=== PATIENT | female | born 1935 | race Caucasian/White ===

== ENCOUNTER 2023-08-08 20:49 | Emergency (ER) | payer MEDICARE, OTHER, SELFPAY ==
[2023-08-08 20:53] VITALS: BP 151/103; BMI 29.1
[2023-08-08 22:45] VITALS: BP 201/76
--- NOTE | 2023-08-08 22:52 | EDRN ---
Pt went into the bathroom and when she exited, she tripped over the cord to her electric blanket that her cats had pulled from underneath the bed. Pt fell into wall and struck her head. No loc. Pt feels upper back tension, no neck pain. Pt has
'a little' headache. Pt had nausea initially but no longer. No visual disturbance or dizziness.
[2023-08-08] MEDS: TYLENOL 1000 MG PO (23:55)
[2023-08-08] MEDS: ADACEL 0.5 ML IM (23:56)
[2023-08-09] VITALS: BP 202/80
--- NOTE | 2023-08-09 00:56 | ED.GENMED ---
History of Present Illness
General
Chief Complaint: Fall
Source: patient and family
Exam Limitations: none
Time Seen by Provider: 08/08/23 22:18
Nursing documentation reviewed up to this point in time: agreed with
Travel History
Have you had any contact with someone who has COVID-19?: No
Do you have any symptoms of coronavirus? Fever > 100 degrees, chills, cough, shortness of breath, sore throat, loss of taste or smell, muscle aches, or headache?: No
History of Present Illness
History of Present Illness:
The patient is a pleasant 88-year-old female who reports that she tripped and fell over a cord and fell into a doorway. Patient arrives with bruising of her right face and periorbital area. She has a small laceration just to the right of her nasal
bridge. Patient denies vision changes and headache. She reports mild neck pain. There was no loss of consciousness. She denies back pain, chest pain abdominal pain. She is not on blood thinners. Her family heard her fall
Past History
Past History
ED Past Medical History: GERD, HTN, Hypercholesterolemia and Other (migraine)
ED Past Surgical History: Gynecological and Orthopedic
Social History
Tobacco: Non-smoker
Alcohol: Other
Drug: None
Personal:
Living: with family
Employment: Retired
Family History
Family History: Other
Review of Systems
Review of Systems
Allergies reviewed?: Yes
Other source history: family
All Other Systems: ROS reviewed and negative except as documented in HPI and ROS
Constitutional: Reports no symptoms
EENT: Reports other (Swelling along right nose area.)
Respiratory: Reports no symptoms
Cardiac: Reports no symptoms
ABD/GI: Reports no symptoms
: Reports no symptoms
Musculoskeletal: Reports muscle stiffness and neck pain
Skin: Reports other
Neurological: Reports no symptoms
Endocrine: Reports no symptoms
Hematologic/Lymphatic: Reports no symptoms
Psychiatric: Reports no symptoms
Phy Exam
Physical Exam
Physical Exam:
Physical Exam
General: no apparent distress, not acutely ill. Patient smiling, conversational
Neck: supple. Mild lower C-spine tenderness. Ecchymotic right periorbital area. Ecchymotic bridge of nose. Extraocular muscles intact. PERRL
Heart: s1/s2 regular rate and rhythm, no chest wall tenderness
Lungs: no acute respiratory distress. clear bilaterally. No thoracic or lumbar spine tenderness
Abdomen: Soft, nontender
Neuro: alert and oriented. no focal neurological deficits
Skin: 0.5 cm laceration just to the right of patient's nasal bridge
Psychiatric: well kept. interactive and cooperative
Extremities: Mild ecchymoses of medial right hand area. No bony tenderness of upper or lower extremities. Strong pulses of bilateral upper and lower extremities
Course
Orders/Labs/Results
Orders:
Orders
08/08/23 23:34
Acetaminophen [Tylenol] 1,000 mg PO NOW STA
Tetanus/Diphth/Acelpertussis [Adacel] 0.5 ml IM .ONCE ONE
08/09/23 00:00
CT Cervical Spine W/o Iv Contr Urgent
Reason For Exam: trauma, lower neck pain
CT Facial Bones W/o Iv Contras Urgent
Reason For Exam: trauma
CT Head W/o Iv Contrast Urgent
Reason For Exam: fall
Vital Signs
Initial and Last Documented VS:
Initial Vital Signs
Temp Pulse Resp BP Pulse Ox
97.4 F 67 16 151/103 98
08/08/23 20:53 08/08/23 20:53 08/08/23 20:53 08/08/23 20:53 08/08/23 20:53
Last Documented Vital Signs
Temp Pulse Resp BP Pulse Ox
97.4 F 74 14 118/68 96
08/08/23 20:53 08/09/23 01:48 08/09/23 01:48 08/09/23 01:48 08/09/23 01:48
Procedures
Laceration Closure
Right Upper Cheek:
Status of Wound: clean
Size of Wound in cm: 0.5
Description of Wound Edges: sharp and flap-well vascularized
Preparation: cleaned with saline
Type of Closure: Dermabond-skin glue
MDM/Problems Addressed
Differential Diagnosis Includes:
Nasal bone fracture, orbital wall fracture, intracranial hemorrhage
MDM/Problems Addressed:
Patient arrives with acute facial bruising and swelling, as well as acute neck pain after walking into a doorway area
Acute Exacerbation and/or Progression of Chronic Illness: HTN
*Pulse Oximetry
Patient hypoxic: no
*EKG
Interpreted by ED Provider?: NA
*Critical Care Note
Total Time (30-74mins, 75-104mins- exclusive of procedures): Not Applicable
ED Attending Note
-
Portions of this chart may have been created with voice recognition software.� Occasional wrong word or��sound alike� substitutions may have occurred due to the inherent limitations of voice recognition software.
Discharge Plan
Departure
Patient Disposition: Home (Routine Discharge)
Date of Disposition: 08/09/23
Time of Disposition: 01:41
Patient with high blood pressure during this ER visit?: Yes
Discharge Problem:
Facial contusion, Facial laceration
Instructions: Laceration Repair With Glue (DC), Head Injury in Adults (DC)
Prescriptions:
No Action
bisoprolol-hydrochlorothiazide [Ziac] 10-6.25 mg Tablet
0.5 tab PO DAILY
cyanocobalamin (vitamin B-12) 1,000 mcg Tablet
1,000 mcg PO DAILY
aspirin 81 mg Tablet,Delayed Release (Dr/Ec)
81 mg PO DAILY
sertraline 25 mg Tablet
25 mg PO DAILY
levothyroxine [Levoxyl] 112 mcg Tablet
112 mcg PO DAILY
cholecalciferol (vitamin D3) [Vitamin D3] 25 mcg (1,000 unit) Capsule
25 mcg PO DAILY
rosuvastatin 20 mg Tablet
20 mg PO DAILY
Referrals:
Alex Patel MD [Family Provider] -
Interventions
Interventions:
*Risk Screen - Suicide Last Done: 08/08/23 20:53
*General Assessment Last Done: 08/08/23 22:45
*Neglect/Abuse Screening Last Done: 08/08/23 20:53
ED- Fall Risk Assessment Last Done: 08/08/23 20:53
*ED COVID-19 Vaccine History Last Done: 08/08/23 20:53
*Nursing Disposition Last Done: 08/09/23 01:51
ED-Musculoskeletal Assessment Last Done: 08/08/23 22:45
ED- Neurological Assessment Last Done: 08/08/23 22:45
ED-Skin Assessment Last Done: 08/08/23 22:45
Discharge Date and Time
Discharge Date/Time: 08/09/23 01:51
[2023-08-09 01:48] VITALS: BP 118/68
== END 2023-08-09 01:51 | disposition home or self-care (01) ==
LOC: EMR 20:49
PROVIDERS: EMERGENCY PHYSICIAN Emergency Medicine; FAMILY PHYSICIAN Family Medicine
DX: S01.411A Laceration without foreign body of right cheek and temporomandibular area, initial encounter (principal); S00.83XA Contusion of other part of head, initial encounter; S00.11XA Contusion of right eyelid and periocular area, initial encounter; S00.33XA Contusion of nose, initial encounter; S60.221A Contusion of right hand, initial encounter; R11.0 Nausea; R51.9 Headache, unspecified; M54.2 Cervicalgia; W18.09XA Striking against other object with subsequent fall, initial encounter; I10 Essential (primary) hypertension; K21.9 Gastro-esophageal reflux disease without esophagitis; E78.00 Pure hypercholesterolemia, unspecified; Z79.82 Long term (current) use of aspirin; Z88.5 Allergy status to narcotic agent; Z88.8 Allergy status to other drugs, medicaments and biological substances
CPT/HCPCS: 99284; 12011; 90471; 70450; 70486; 72125; 90715

== ENCOUNTER 2024-06-29 13:50 | Inpatient (IN) | payer MEDICARE, OTHER, SELFPAY ==
[2024-06-28 13:03] VITALS: BP 161/99
--- NOTE | 2024-06-28 13:04 | ED.GENMED ---
ED Provider Triage
<Brianne Hou NP - Last Filed: 06/28/24 13:12>
-
Patient seen by provider in Triage?: Seen in Triage
89-year-old female here with her family here reports she has been seeing 'squiggly's' in her right visual field of both eyes, left greater than right. She has similar symptoms with previous migraines 'but not as bad and not as long.' Denies any
recent head injury or fall.
state 2 nights ago had episode of incontinence in her bed which is unusual for her and states the stool was very dark or black. Was in bed all day yesterday. She does feel 'a little dizzy,' she was nauseous for period time Thursday night but has had
no nausea since. There is been no vomiting. Patient denies CP, SOB, abdominal pain.
Ho she has been in bed since then, disoriented the past couple weeks worse the last couple days,
History of Present Illness
<Brianne Hou NP - Last Filed: 06/28/24 13:12>
General
Chief Complaint: Headache
Time Seen by Provider: 06/28/24 18:26
<Mikhail Cuevas PA-C - Last Filed: 06/28/24 21:11>
General
Source: patient and family
History of Present Illness
History of Present Illness:
89-year-old female with past medical history of hypertension, hyperlipidemia and diabetes (admittedly noncompliant with medications) presents to the emergency department for evaluation of a multitude of symptoms the main symptom being a bitemporal
headache accompanied with visual disturbance to the lateral aspect of the right eye and the medial aspect of the left eye. Patient reports that the headache and visual disturbance has been somewhat waxing and waning over the course the last 6
months, acutely worsening over the last month with symptoms even more acutely symptomatic over the last 24 to 48 hours. Patient states she also feels a little off balance because of the visual disturbance although notes she has not fallen. Thursday
night patient also noted that she had some GI upset including multiple episodes of diarrhea and a few episodes of vomiting all of which seemingly improved, son noted that patient's stool seemed a little bit darker in color.
Past History
<Brianne Hou IT ASSISTANT - Last Filed: 06/28/24 13:12>
Past History
ED Past Medical History: GERD, HTN, Hypercholesterolemia and Other (migraine)
ED Past Surgical History: Gynecological and Orthopedic
Social History
Tobacco: Non-smoker
Alcohol: Other
Drug: None
Personal:
Living: with family
Employment: Retired
Family History
Family History: Other
Review of Systems
<Mikhail Cuevas PA-C - Last Filed: 06/28/24 21:11>
Review of Systems
All Other Systems: ROS reviewed and negative except as documented in HPI and ROS
Phy Exam
<Mikhail Cuevas PA-C - Last Filed: 06/28/24 21:11>
Physical Exam
Physical Exam:
GENERAL: Alert , in no apparent distress
EYE: pupils equal and reactive, 4mm b/l, EOMI, there is right homonomous hemianopsia when evaluating visual [place]
NECK: Supple, no significant adenopathy.
ENT: o/p clr, mmm.
CARDIAC: Regular rate and rhythm .
LUNGS: Clear breath sounds bilaterally, no acute respiratory distress, no wheezes/rales/rhonchi
ABDOMEN: soft, non-tender, non-distended
NEUROLOGICAL: Alert and oriented, right sided dysmetria, no aphasia/dysarthria, no ataxia while ambulating
SKIN: Warm and dry, skin intact.
MUSCULOSKELETAL: No edema, well perfused.
PSYCH: Normal and appropriate interaction.
Scores
<Mikhail Cuevas PA-C - Last Filed: 06/28/24 21:11>
NIH Stroke Score
Level of Consciousness: 0 - Alert
LOC Questions: 0-Answers both correctly
LOC Commands: 0-Performs both correctly
Best Horizontal Gaze: 0-Normal
Visual [place]: 2=Full hemianopia
Facial Palsy: 0=Normal, symmetrical
Motor - Right Arm: 0=No drift 10 seconds
Motor - Left Arm: 0=No drift 10 seconds
Motor - Right Le-No drift 5 seconds
Motor - Left Le-No drift 5 seconds
Limb Ataxia: 0-Absent
Sensation: 0-Normal
Best Language: 0-No aphasia
Dysarthria: 0-Normal
Extinction and Inattention: 0-No abnormality
Total Score:: 2
Thrombolytic Contraindication
Inclusion and Exclusion criteria reviewed: Yes
Reasons for NON-Tx with Thrombolytics ABSOLUTE Exclusions: Greater than 4.5 hrs from onset of sxs
Course
<Brianne Hou, IT ASSISTANT - Last Filed: 06/28/24 13:12>
Orders/Labs/Results
Orders:
Orders
06/28/24 13:12
CT Head W/o Iv Contrast Urgent
Comment:
Reason For Exam: visual disturbance, confusion
Urinalysis Reflex To Culture Urgent
Date Specimen was Collected: 06/28/24
Time Specimen was Collected: 19:09
06/28/24 13:16
C-Reactive Protein Urgent
Comment: ADD ON
Complete Blood Count/With Diff Urgent
Comprehensive Metabolic Panel Urgent
Erythrocyte Sed Rate Urgent
Comment: ADD ON
06/28/24 18:28
CR Chest - 2 Views Urgent
Comment:
Reason For Exam: sepsis eval
06/28/24 18:42
COVID-19 Antigen Urgent
Source: Nasal Swab
Influenza A+B Rapid Molecular Urgent
THANIA Source: Nasal Swab
Specimen Description:
06/28/24 18:43
Add On- LAB Urgent
Tests Added?: ESR/CRP
06/28/24 18:47
CT Head & Neck Angio W/wo IV Urgent
Comment:
Reason For Exam: right homonomous hemianopsia
06/28/24 18:56
Electrocardiogram (*1) Urgent
Reason for Study: TIA/Stroke
EKG- Treatment ONCE
06/28/24 19:15
Lactic Acid Q4H
Comment: CANCEL 2nd LACTIC ACID IF 1st LACTIC ACID IS LESS THAN 2
Blood Culture Q30M
THANIA Source: Blood/Venous
Specimen Description:
Blood Culture Q30M
THANIA Source: Blood/Venous
Specimen Description:
06/28/24 19:40
MR Brain Without Contrast Routine
Comment:
Reason For Exam: encephalopathy
OK for patient to be off Cardiac Monitoring for MRI: No
Recent pill cam endoscopy?: No
06/28/24 20:45
Urine Drug Abuse Screen Routine
06/28/24 20:49
Admit/Transfer Patient As Directed
Co-Sign Provider:
Level of Care: Observation services
Assign to:: Telemetry
Physician / Group: Filippo Bear
Diagnosis: homonomous hemionopsia
Reason for Telemetry: CVA/TIA
Date to Stop Telemetry: 07/01/24
Time to Stop Telemetry: 11:00
PRN Pain Medication Management As Directed
May give lesser potent ordered pain med per pt: Yes
preference::
Protocol:: Medication orders for pain may be administered in a
manner that supports deferring to patient preference
when the pt is:
- Requesting an ordered lesser potent pain medication.
Least to most potent pain medications are defined
as: acetaminophen < NSAID < tramadol < opioids
(morphine, oxycodone, hydromorphone).
- Requesting a lesser dose of the same medication IF
ORDERED.
- Requesting a less intrusive route of administration
if both routes are prescribed by the provider (PO <
IV).
06/28/24 20:50
Code Status As Directed
Resuscitation Status: Full Code
06/28/24 22:30
Lactic Acid Q4H
Comment: CANCEL 2nd LACTIC ACID IF 1st LACTIC ACID IS LESS THAN 2
07/01/24 11:00
DC Protocol for Telemetry ONCE
Abnormal Lab Results
06/28/24
13:16
WBC 19.1 H 10^3/uL
(4.8-10.8)
MPV 11.0 H fL
(7.4-10.4)
Abs Immat Gran (auto) 0.1 H 10^3/uL
(0-0.05)
Absolute Neuts (auto) 15.5 H 10^3/uL
(1.4-6.5)
Absolute Monos (auto) 1.0 H 10^3/uL
(0.1-0.6)
Neutrophils % 80.9 H %
(42.2-75.2)
Lymphocytes % 12.7 L %
(20.5-51.1)
Chloride 96 L mmol/L
(98-107)
BUN 18 H mg/dl
(7-17)
Creatinine 1.2 H mg/dL
(0.6-1.0)
Glucose 169 H mg/dl
(70-99)
C-Reactive Protein 69.80 H mg/L
(0.0-10.00)
06/28/24 13:16
06/28/24 13:16
Vital Signs
Initial and Last Documented VS:
Initial Vital Signs
Temp Pulse Resp BP Pulse Ox
97.8 F 101 17 161/99 98
06/28/24 13:03 06/28/24 13:03 06/28/24 13:03 06/28/24 13:03 06/28/24 13:03
Last Documented Vital Signs
Temp Pulse Resp BP Pulse Ox
98.2 F 82 18 186/86 98
06/28/24 15:34 06/28/24 19:29 06/28/24 19:29 06/28/24 19:29 06/28/24 19:29
<Mikhail Cuevas PA-C - Last Filed: 06/28/24 21:11>
Orders/Labs/Results
Orders:
Orders
06/28/24 13:12
CT Head W/o Iv Contrast Urgent
Comment:
Reason For Exam: visual disturbance, confusion
Urinalysis Reflex To Culture Urgent
Date Specimen was Collected: 06/28/24
Time Specimen was Collected: 19:09
06/28/24 13:16
C-Reactive Protein Urgent
Comment: ADD ON
Complete Blood Count/With Diff Urgent
Comprehensive Metabolic Panel Urgent
Erythrocyte Sed Rate Urgent
Comment: ADD ON
06/28/24 18:28
CR Chest - 2 Views Urgent
Comment:
Reason For Exam: sepsis eval
06/28/24 18:42
COVID-19 Antigen Urgent
Source: Nasal Swab
Influenza A+B Rapid Molecular Urgent
THANIA Source: Nasal Swab
Specimen Description:
06/28/24 18:43
Add On- LAB Urgent
Tests Added?: ESR/CRP
06/28/24 18:47
CT Head & Neck Angio W/wo IV Urgent
Comment:
Reason For Exam: right homonomous hemianopsia
06/28/24 18:56
Electrocardiogram (*1) Urgent
Reason for Study: TIA/Stroke
EKG- Treatment ONCE
06/28/24 19:15
Lactic Acid Q4H
Comment: CANCEL 2nd LACTIC ACID IF 1st LACTIC ACID IS LESS THAN 2
Blood Culture Q30M
THANIA Source: Blood/Venous
Specimen Description:
Blood Culture Q30M
THANIA Source: Blood/Venous
Specimen Description:
06/28/24 19:40
MR Brain Without Contrast Routine
Comment:
Reason For Exam: encephalopathy
OK for patient to be off Cardiac Monitoring for MRI: No
Recent pill cam endoscopy?: No
06/28/24 20:45
Urine Drug Abuse Screen Routine
06/28/24 20:49
Admit/Transfer Patient As Directed
Co-Sign Provider:
Level of Care: Observation services
Assign to:: Telemetry
Physician / Group: Filippo Bear
Diagnosis: homonomous hemionopsia
Reason for Telemetry: CVA/TIA
Date to Stop Telemetry: 07/01/24
Time to Stop Telemetry: 11:00
PRN Pain Medication Management As Directed
May give lesser potent ordered pain med per pt: Yes
preference::
Protocol:: Medication orders for pain may be administered in a
manner that supports deferring to patient preference
when the pt is:
- Requesting an ordered lesser potent pain medication.
Least to most potent pain medications are defined
as: acetaminophen < NSAID < tramadol < opioids
(morphine, oxycodone, hydromorphone).
- Requesting a lesser dose of the same medication IF
ORDERED.
- Requesting a less intrusive route of administration
if both routes are prescribed by the provider (PO <
IV).
06/28/24 20:50
Code Status As Directed
Resuscitation Status: Full Code
06/28/24 22:30
Lactic Acid Q4H
Comment: CANCEL 2nd LACTIC ACID IF 1st LACTIC ACID IS LESS THAN 2
07/01/24 11:00
DC Protocol for Telemetry ONCE
Abnormal Lab Results
06/28/24
13:16
WBC 19.1 H 10^3/uL
(4.8-10.8)
MPV 11.0 H fL
(7.4-10.4)
Abs Immat Gran (auto) 0.1 H 10^3/uL
(0-0.05)
Absolute Neuts (auto) 15.5 H 10^3/uL
(1.4-6.5)
Absolute Monos (auto) 1.0 H 10^3/uL
(0.1-0.6)
Neutrophils % 80.9 H %
(42.2-75.2)
Lymphocytes % 12.7 L %
(20.5-51.1)
Chloride 96 L mmol/L
(98-107)
BUN 18 H mg/dl
(7-17)
Creatinine 1.2 H mg/dL
(0.6-1.0)
Glucose 169 H mg/dl
(70-99)
C-Reactive Protein 69.80 H mg/L
(0.0-10.00)
06/28/24 13:16
06/28/24 13:16
Vital Signs
Initial and Last Documented VS:
Initial Vital Signs
Temp Pulse Resp BP Pulse Ox
97.8 F 101 17 161/99 98
06/28/24 13:03 06/28/24 13:03 06/28/24 13:03 06/28/24 13:03 06/28/24 13:03
Last Documented Vital Signs
Temp Pulse Resp BP Pulse Ox
98.2 F 82 18 186/86 98
06/28/24 15:34 06/28/24 19:29 06/28/24 19:29 06/28/24 19:29 06/28/24 19:29
<Mikhail Cuevas PA-C - Last Filed: 06/28/24 21:11>
MDM/Problems Addressed
Differential Diagnosis Includes:
CVA, atypical migraine, malignancy/mass, carotid stenosis, giant cell arteritis considered given age and sex however given the bilateral nature of the symptoms I am less concerned for this as a diagnosis. Less concern for seizure, electrolyte
abnormality, viral syndrome
MDM/Problems Addressed:
89-year-old female presenting to the emergency department for evaluation of a multitude of symptoms, most pressing is right-sided homonymous hemianopsia with an unclear onset of symptoms, patient noting the symptoms have been waxing and waning for
approximately 6 months, acutely worse over the last month but seemingly more of a headache for the last 48 hours or so. Within these 48 hours patient also noted some GI upset with the symptoms now fully resolved. She arrived to the ER
hemodynamically stable although mild tachycardic. Labs were initiated on arrival which do show a significantly persistent 19,000, mild chronic kidney disease and a negative plain CT of the head. Given these lab findings as well as patient's
physical exam findings I do feel she warrants admission for further evaluation. Additional labs for infectious etiology ordered. Will discuss with neurology. Plan to admit to hospitalist service.
Chronic conditions affecting care: DM and HTN
<Mikhail Cuevas PA-C - Last Filed: 06/28/24 21:11>
*Radiology
Radiology exam reviewed: radiology read reviewed
*Pulse Oximetry
Patient hypoxic: no
*Critical Care Note
Total Time (30-74mins, 75-104mins- exclusive of procedures): Not Applicable
Data Reviewed
Review of Other/Old Records Reveals: Labs and Records
<Mikhail Cuevas PA-C - Last Filed: 06/28/24 21:11>
Patient Management
Discussion with other providers: Hospitalist and Clerk Typist
Escalation/DeEscalation of care consider admission/obs:
Case discussed with neurology who is requesting a CTA of the head and neck be ordered. Hospitalist team accepts for continued evaluation and treatment.
ED Attending Note
<Brianne Hou NP - Last Filed: 06/28/24 13:12>
-
Portions of this chart may have been created with voice recognition software.� Occasional wrong word or��sound alike� substitutions may have occurred due to the inherent limitations of voice recognition software.
Discharge Plan
Departure
Patient Disposition: Admit
Date of Disposition: 06/28/24
Time of Disposition: 19:02
Presentation/result/management discussed w/ accepting MD/DO: Hospitalist
Discharge Problem:
Hemianopia, homonymous, right, Leukocytosis
Interventions
Interventions:
*Risk Screen - Suicide Last Done: 06/28/24 13:06
*General Assessment Last Done: 06/28/24 13:06
*Neglect/Abuse Screening Last Done: 06/28/24 13:06
*ED COVID-19 Vaccine History Last Done: 06/28/24 13:06
ED- Neurological Assessment Last Done: 06/28/24 19:40
[2024-06-28 13:44] LABS: % Basophils 0.5 % (0-2); % Eosinophils 0.3 % (0-6); % Immature Granulocytes 0.5 % (0-0.5); % Lymphocytes 12.7 % (20.5-51.1); % Monocytes 5.1 % (1.7-9.3); % Neutrophils 80.9 % (42.2-75.2); Absolute Basophils 0.1 10^3/uL (0-0.2); Absolute Eosinophils 0.1 10^3/uL (0-0.7); Absolute Immature Granulocytes 0.1 10^3/uL (0-0.05); Absolute Lymphocytes 2.4 10^3/uL (1.2-3.4); Absolute Neutrophils 15.5 10^3/uL (1.4-6.5); Hematocrit 43.5 % (37.0-47.0); Hemoglobin 14.9 g/dL (12.0-16.0); Mean Corp Hgb Conc. 34.3 g/dL (33.0-37.0); Mean Corpuscular Hgb 29.9 pg (27.0-31.0); Mean Corpuscular Volume 87.2 fL (81.0-99.0); Nucleated Red Blood Cells % 0 %; Platelet Count 233 10^3/uL (130-400); Red Blood Cell Count 4.99 10^6/uL (4.20-5.40); Red Cell Dist. Width 13.8 % (11.5-14.5); White Blood Cell Count 19.1 10^3/uL (4.8-10.8)
[2024-06-28 13:56] LABS: ALT (SGPT) 15 U/L (0-35); AST (SGOT) 21 U/L (14-36); Albumin 4.3 g/dl (3.5-5.0); Alkaline Phosphatase 54 U/L (38-126); Blood Urea Nitrogen 18 mg/dl (7-17); Calcium 9.6 mg/dl (8.4-10.2); Carbon Dioxide 28 mmol/L (22-30); Chloride 96 mmol/L (98-107); Glucose 169 mg/dl (70-99); Potassium 3.9 mmol/L (3.5-5.1); Sodium 135 mmol/L (135-145); Total Bilirubin 0.8 mg/dl (0.2-1.3); Total Protein 6.8 g/dl (6.3-8.2); eGFR 43.27
[2024-06-28 15:34] VITALS: BP 157/83
[2024-06-28 18:15] VITALS: BP 173/86
--- NOTE | 2024-06-28 18:56 | CON.NEURO ---
Consultation
Order
Date of Consultation: 06/28/24
Requesting Provider: Mikhail Cuevas PA-C
Reason for Consult: Imbalance, right hemianopsia
Neurology Consultation Note.
HPI: This is an 89-year-old woman who presented to [facility] on 06/28/2024 with headache.
Ms. Lima is unable to provide history. She admits to change in balance and vision but unable to elaborate on the bowel.
ER VS: 161/99-173/86, 101, afebrile
EKG: Pending
PDMP:none
Labs: Glucose�169, creatinine�1.2, normal sodium
CT head wo contrast-no acute abnormalities.
PMH: HTN, DLP, hypothyroidism, Vitamin D deficiency, GERD, LAURITA, migraine QUINTERO
PSH:left lumpectomy, bilateral tubal ligation, hernia repair umbilical,
SH: , lives with her son.
FH: Unknown
All: Aspirin, oxycodone, penicillin, Propoxyphene
ROS: positive for several months of progressive encephalopathy, right leg weakness
General: Well developed. In no acute distress.
Cardio: Regular rate and rhythm without murmur. Extremities are without cyanosis or edema.
Neuro:
Mental Status: Alert, oriented to name, year, month. Did not know the date. Nonfluent expressive aphasia. Follows simple requests intermittently.
Cranial Nerves: Pupils are equally round and reactive to light. EOMs full. Inconsistent visual field exam to confrontation. Blinks to threat bilaterally. No ptosis. No nystagmus. V1-V3 intact to light touch and pinprick bilaterally,
symmetric. Face symmetric. Normal hearing AU. The palate elevated well. SCMs and traps 5/5. Tongue midline. No dysarthria.
Motor: No pronator drift. Right proximal leg weakness-
Reflexes: Limited exam due to cooperation
Sensory: Limited exam due to dysphagia
Coordination: No dysmetria or tremor.
Gait: deferred
Assessment and Plan:
I. Multifactorial encephalopathy (vascular, metabolic)
II. HTN
III. Hypothyroidism,
-Aspiration precautions.
-Please check TFTs, B12, UA, urine tox
-Brain MRI without laurita to soon as possible
-Routine EEG if no acute abnormalities
-Will obtain collateral history from patient's family
-I have called patient's daughter and son who were not available
-DVT prophylaxis.
I personally reviewed all radiology and labs along with past medical records pertinent to current medical problems. Total time spent in patient care is 60 minutes.
Thank you for allowing us to participate in the care of this patient. We will continue to follow. Please do not hesitate to contact us with any questions or concerns.
Subjective/Objective
Subjective Data
Date of Service: June 28, 2024
Objective Data
Vital Signs
Temp Pulse Resp BP Pulse Ox
36.8 C 80 16 173/86 98
06/28/24 15:34 06/28/24 18:15 06/28/24 18:15 06/28/24 18:15 06/28/24 18:15
Lab Results
06/28/24 13:16
06/28/24 13:16
Sodium 135 mmol/L (135-145) 06/28/24 13:16
Potassium 3.9 mmol/L (3.5-5.1) 06/28/24 13:16
BUN 18 mg/dl (7-17) H 06/28/24 13:16
Glucose 169 mg/dl (70-99) H 06/28/24 13:16
Calcium 9.6 mg/dl (8.4-10.2) 06/28/24 13:16
Patient Allergies
oxycodone Allergy (Verified 06/28/24 13:05)
hallucinations, disorientation, nausea
propoxyphene napsylate [From DarAirtimet-N 100] Allergy (Verified 06/28/24 13:05)
Nausea
Medications
-
Home Medications
�Medication �Instructions �Recorded
aspirin 81 mg tablet,delayed 81 mg PO DAILY 08/08/23
release
bisoprolol 10 0.5 tab PO DAILY 08/08/23
mg-hydrochlorothiazide 6.25 mg
tablet
cholecalciferol (vitamin D3) 25 25 mcg PO DAILY 08/08/23
mcg (1,000 unit) capsule (Vitamin
D3)
cyanocobalamin (vitamin B-12) 1,000 mcg PO DAILY 08/08/23
1,000 mcg tablet
levothyroxine 112 mcg tablet 112 mcg PO DAILY 08/08/23
(Levoxyl)
rosuvastatin 20 mg tablet 20 mg PO DAILY 08/08/23
sertraline 25 mg tablet 25 mg PO DAILY 08/08/23
Vital Signs and Labs
-
Vital Signs and Labs:
Vital Signs
Temp Pulse Resp BP Pulse Ox
36.8 C 82 18 186/86 98
06/28/24 15:34 06/28/24 19:29 06/28/24 19:29 06/28/24 19:29 06/28/24 19:29
Lab Results
06/28/24 13:16
06/28/24 13:16
Sodium 135 mmol/L (135-145) 06/28/24 13:16
Potassium 3.9 mmol/L (3.5-5.1) 06/28/24 13:16
BUN 18 mg/dl (7-17) H 06/28/24 13:16
Glucose 169 mg/dl (70-99) H 06/28/24 13:16
Calcium 9.6 mg/dl (8.4-10.2) 06/28/24 13:16
Home Medications
-
Home Medications
aspirin 81 mg tablet,delayed release 81 mg PO DAILY 08/08/23
bisoprolol 10 mg-hydrochlorothiazide 6.25 mg tablet 0.5 tab PO DAILY 08/08/23
cholecalciferol (vitamin D3) 25 mcg (1,000 unit) capsule (Vitamin D3) 25 mcg PO DAILY 08/08/23
cyanocobalamin (vitamin B-12) 1,000 mcg tablet 1,000 mcg PO DAILY 08/08/23
levothyroxine 112 mcg tablet (Levoxyl) 112 mcg PO DAILY 08/08/23
rosuvastatin 20 mg tablet 20 mg PO DAILY 08/08/23
sertraline 25 mg tablet 25 mg PO DAILY 08/08/23
[2024-06-28 19:03] LABS: COVID-19 Antigen Negative (Negative)
[2024-06-28 19:29] VITALS: BP 186/86
[2024-06-28 19:43] LABS: Erythrocyte Sed Rate 7 mm/hour (0-20)
[2024-06-28 19:47] LABS: Lactic Acid 1.2 mmol/L (0.7-2.0)
--- NOTE | 2024-06-28 19:47 | HPS.HSE ---
Addendum entered and electronically signed by Filippo Bear DO 06/28/24 21:15:
Patient seen and examined independently. Agree with findings and plan as set forth by NAVEEN Worrell
Patient is an 89y F with PMH significant for HTN, DM-II and hypothyroidism who presented to ED complaining of headache and vision changes. Patient describes wavy or colored lines in her field of vision. She also complains of loss of vision to
the right. She denies any focal numbness, weakness or tingling. She denies any headache at the time of my visit. Patient reports episopde of bowel incontinence a few days prior to this admission. Some details of her history are unclear and seem
to change with each telling.
Ass:
Vision Change / Headache
Benign Hypertension
DM-II
History of Breast Cancer s/p Mastectomy
GERD
Hypothyroidism
Leukocytosis
Plan:
Observe overnight for further evaluation and treatment.
Appreciate Neurology evaluation / recommendations.
MRI in the AM.
Continue ASA daily for now.
Follow for any changes in neuro exam.
Adjust med regimen as needed for BP control.
Follow glucose and update A1C.
Original Note:
Family Physician
-
Family Physician: Alex Patel
Chief Complaint
-
headache
History of Present Illness
Patient is a 89-year-old female with past medical history significant for hypothyroidism, hypertension, hyperlipidemia, GERD, arthritis, DM II, and hx left breast cancer who presented to [facility] for evaluation of headache and change in eye
sight. Son assisted in HPI. It is reported that patient has been seeing 'squiggly' in her right visual field that is yellow/orange in color, in bilateral eyes, left eye being worse than right. Patient reports similar experience with migraines in the
past, but states never have lasted this long before. Patient also reports episode of bowel incontinence in bed 2 days ago (which is not typical for her) and claims stool was darker than normal. Patient claims she has had these symptoms for months
with them getting progressively worse over the past month and significantly increased in last 48 hours. Patient had episode of abdominal pain with diarrhea for one day on Thursday. Denies any fever, chills, cough, shortness of breath, chest pain,
nausea, vomiting, constipation or urinary symptoms. Patient reports that she has not seen primary provider in sometime and that she has not taken her medication as prescribed as a result.
Medical History
Past Medical History
Past Medical History: Reports Other
Additional Past Medical History:
hypothyroidism
hypertension
hyperlipidemia
GERD
arthritis
DM II
hx left breast cancer
Past Surgical History: Reports Other
Additional Past Surgical History:
bilateral knee replacement
bilateral tubal ligation
umbilical hernia repair
Social History
Tobacco: Non-smoker
Alcohol: Occasional
Drug: None
Personal:
Living: With Family
Employment: Retired
Family History
Family History: Not pertinent
Allergies / Home Medications
Allergies reflects when Allergies were last updated in [facility].
Home Medications with original date entered in [facility]
Allergy/Medication List:
Allergies
Allergy/AdvReac Type Severity Reaction Status Date / Time
oxycodone Allergy hallucinations, Verified 06/28/24 13:05
disorientation,
nausea
propoxyphene napsylate Allergy Nausea Verified 06/28/24 13:05
[From Darvocet-N 100]
Home Medications
bisoprolol 10 mg-hydrochlorothiazide 6.25 mg tablet 1 tab PO DAILY 08/08/23
Review of Systems
-
History Source: Patient and Family
Constitutional: Reports No Symptoms
EENT: Reports Other (visual disturbance to right visual field in bilateral eyes )
Respiratory: Reports No Symptoms
Cardiac: Reports No Symptoms
Abdomen/GI: Reports Abdominal Pain and Diarrhea
: Reports No Symptoms
Musculoskeletal: Reports No Symptoms
Skin: Reports No Symptoms
Neurological: Reports No Symptoms
Endocrine: Reports No Symptoms
Hematologic/Lymphatic: Reports No Symptoms
Psych: Reports No Symptoms
Physical Exam
Vital Signs
Vital Signs
Temp Pulse Resp BP Pulse Ox
98.2 F 82 18 186/86 98
06/28/24 15:34 06/28/24 19:29 06/28/24 19:29 06/28/24 19:29 06/28/24 19:29
Physical Exam
General: Well Developed, Well Nourished, No Apparent Distress, Comfortable, Conversant and Obese
HEENT: NormoCephalic, Moist mucous membranes, Atraumatic, PERRLA, [place] Conjunctivae, Nose Appears Normal and Ears Appear Normal
Respiratory: Clear and Non Labored Respirations
Cardiac: S1/S2 and Regular Rhythm; No Murmur, Rub or Gallop
Breast: Deferred by me
GI: Soft, Non Tender and Normal Bowel Sounds; No Organomegaly
Rectal: Deferred by Provider
Genito-urinary: Deferred by me
Musculoskeletal: No Clubbing, No Cyanosis and No Edema
Skin: Warm and IV/Catheter Site; No Rash
Neuro: Awake, Alert and Nonfocal/grossly intact
Psych: Calm and Confused
Laboratory Results
-
06/28/24 13:16
06/28/24 13:16
Laboratory Results
Total Bilirubin 0.8 mg/dl (0.2-1.3) 06/28/24 13:16
AST 21 U/L (14-36) 06/28/24 13:16
ALT 15 U/L (0-35) 06/28/24 13:16
Alkaline Phosphatase 54 U/L (38-126) 06/28/24 13:16
Data Reviewed
-
CT Scan: Report Reviewed by me (Head CT: )
Medical Tests (Nuc Med, Echo, EKG etc): Report Reviewed by me (EKG: NORMAL SINUS RHYTHM)
Lab Data: Labs Reviewed by me (WBC 19.1, BUN 18, Creat 1.2, CRP 69.80, )
Impression/Plan
-
IMPRESSION/PLAN:
#homonomous hemianopsia, expressive aphasia, headache
Head CT: No acute intracranial abnormality noted.
Head/Neck CTA: pending
- admit to telemetry
- consult neurology
- check TFT, B12, UA and Urine tox
- brain MRI
#hypothyroidism
- check TFT
#hypertension
- monitor
- continue bisoprolol-hydrochlorothiazide
#DM II
- Accucheck AC & HS
- SSI
- check A1C
#hyperlipidemia
#GERD
#arthritis
#hx left breast cancer
Code status: Full code
DVT prophylaxis: SCDs
--- NOTE | 2024-06-28 21:30 | PTCARENOTE ---
Pt received from ED at 2114. Pt pleasant, AAOx3, VSS, and rolled into room. Pt exhibiting moist cough, on 4L NC, O2 95%, and does not complain of any pain at this time. Pt receptive to room and call li. Pt bed in lowest position and call li
within reach. Pt educated on importance of call li usage, pt relays understanding and cooperation. Will continue with current plan of care.
[2024-06-28 21:33] VITALS: BP 169/82
--- NOTE | 2024-06-28 21:45 | PTCARENOTE ---
Pt received from ED at 2130. Pt AAOX3, VSS, and able to ambulate into room without assistance. Pt absent of pain at this time. NIH score of 3, refer to NIH stroke scale. Pt receptive to room and call li. Pt bed in lowest position and call li
within reach. Pt educated on importance of call li usage, pt relays understanding and cooperation. Will continue with current plan of care.
[2024-06-28 22:43] VITALS: BP 184/90; BMI 29.8
[2024-06-29] VITALS (7 sets, daily range): BP systolic 145–203; BP diastolic 8–95; PULSE 81; O2SAT 96
[2024-06-29] MEDS: APRESOLINE 5 MG IV ×2 (03:58→22:28)
[2024-06-29 06:31] LABS: Amphetamines Negative (Negative); Barbiturates Negative (Negative); Benzodiazepines Negative (Negative); Buprenorphine Negative (Negative); Cocaine Negative (Negative); Marijuana Negative (Negative); Methadone Negative (Negative); Methamphetamines Negative (Negative); Opiates Negative (Negative); Phencyclidine Negative (Negative); Tricyclic Antidepressants Negative (Negative)
[2024-06-29 06:39] LABS: Hematocrit 38.9 % (37.0-47.0); Hemoglobin 13.4 g/dL (12.0-16.0); Mean Corp Hgb Conc. 34.4 g/dL (33.0-37.0); Mean Corpuscular Hgb 29.6 pg (27.0-31.0); Mean Corpuscular Volume 85.9 fL (81.0-99.0); Mean Platelet Volume 10.7 fL (7.4-10.4); Platelet Count 211 10^3/uL (130-400); Red Blood Cell Count 4.53 10^6/uL (4.20-5.40); Red Cell Dist. Width 13.5 % (11.5-14.5); White Blood Cell Count 14.2 10^3/uL (4.8-10.8)
[2024-06-29 06:53] LABS: PT 14.5 Sec (11.4-14.6)
[2024-06-29 06:54] LABS: APTT 33.3 Sec (23.4-35.0)
[2024-06-29 06:58] LABS: ALT (SGPT) 14 U/L (0-35); AST (SGOT) 20 U/L (14-36); Albumin 3.6 g/dl (3.5-5.0); Alkaline Phosphatase 55 U/L (38-126); Blood Urea Nitrogen 16 mg/dl (7-17); Calcium 9.4 mg/dl (8.4-10.2); Carbon Dioxide 25 mmol/L (22-30); Chloride 100 mmol/L (98-107); Estimated Creatinine Clearance 45 ml/min; Glucose 112 mg/dl (70-99); HDL Cholesterol 52 mg/dl; LDL Cholesterol, Calculated 115 mg/dl; Potassium 3.5 mmol/L (3.5-5.1); Sodium 135 mmol/L (135-145); Total Bilirubin 0.6 mg/dl (0.2-1.3); Total Cholesterol 189 mg/dl (50-199); Total Protein 6.1 g/dl (6.3-8.2); Triglyceride 113 mg/dl (10-149); Very Low Density Lipoprotein 22 mg/dl (0-30); eGFR > 60.00
[2024-06-29 07:02] LABS: Troponin I 0.018 ng/ml
[2024-06-29 07:28] LABS: TSH Reflex To Free T4 7.75 uIU/ml (0.47-4.68)
[2024-06-29 07:47] LABS: Vitamin B12 609 pg/ml (239-931)
[2024-06-29 07:56] LABS: Free T4 1.09 ng/dl (0.78-2.19)
[2024-06-29] MEDS: ZEBETA 10 MG PO (08:07)
[2024-06-29] MEDS: ORETIC 6.25 MG PO (08:07)
--- NOTE | 2024-06-29 08:30 | W.PN.HOSP.TC ---
Addendum entered and electronically signed by Taisha Elizondo MD 06/29/24 16:46:
I saw and evaluated the patient independently. I reviewed the resident�s note and agree with findings and plan as documented by Dr. Castillo.
GENERAL: well developed, well nourished, female in no apparent distress
HEENT: NC/AT
HEART: regular rate and rhythm, +S1, +S2
LUNGS : clear to auscultation bilaterally
ABDOM: soft, nontender, nondistended, + bowel sounds
EXT: no cyanosis, clubbing, or edema
NEUROLOGIC: expressive aphasia, 'blind spot as could not see her daughter who was to her right', strength 5/5 all extremities
Visual defect/aphasia--Right homonymous hemianopia, expressive aphasia--MRI consistent with acute to subacute stroke--head CT in ED neg and head and neck CTA neg--apprec neuro--agree with starting asa/plavix-- ECHO essentially WNL, EF
60-65%--therapy recommending acute rehab, will consult PM&R--await EEG--B12 WNL, urine tox screen neg--strong family history with daughter, sons with CVAs--consider hypercoagulable workup as outpt
Hypothyroidism--TFT�elevated TSH at 7.75--Patient was prescribed 112 mcg levothyroxine, but she stopped taking it--restart
Leukocytosis--unclear cause--stress reaction?--no signs of infection
History of melena?--son relates black diarrhea that appeared to have blood in it--HGB stable
Essential Hypertension--Continue bisoprolol/hydrochlorothiazide
DM II--Accucheck AC & HS--SSI-- HGB A1C 5.9
DVT proph
code status--FULL
pt should NOT drive--told her and her family
Original Note:
Today's Communication/Plan
-
Start aspirin, Plavix
Echo
Assessment / Plan
Assessment / Plan
89-year-old female with past medical history of hypothyroidism, essential hypertension, migraine, breast cancer presented to the ER reporting headache, speech issues and vision changes. She is not able to see on the right side of her visual field.
This has been ongoing for a month but has worsened in the past week. Patient's son reported that he noticed some speech defect. Also patient had bowel incontinence 2 days ago and son reported that she passed dark stools. There was a history of
TIA 7 years ago, but she was not started on any medications. Only medication she takes at home is bisoprolol/hydrochlorothiazide.
Impression/plan
Visual defect/aphasia
Right homonymous hemianopia, expressive aphasia
CT head�no evidence of acute intracranial abnormality
CT angiogram head/neck� There is no evidence for significant narrowing of the carotid bulbs or proximal internal carotid arteries bilaterally.Dominant right vertebral artery with small caliber left vertebral artery.
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
Started on aspirin 81 mg, clopidogrel 75 mg.
Ordered echo
Neurology following
B12�609, urine toxicology negative
EEG pending
PT/OT
Hypothyroidism
TFT�elevated TSH at 7.75
Patient was prescribed 112 mcg levothyroxine, but she stopped taking it.
Resume
History of melena
Hemoglobin stable
Monitor
Hypertension
Continue bisoprolol/hydrochlorothiazide
DM II
Accucheck AC & HS
SSI
A1C 5.9
Anticipated Discharge: 24 - 48 hours
Subjective/Interval History
-
Date of Service: June 29, 2024
Patient has expressive aphasia. Reports her right side of the vision is not normal.
Objective Data
-
Labs:
Laboratory Results
06/29/24
06:26
WBC 14.2 H
Hgb 13.4
Hct 38.9
Plt Count 211
PT 14.5
INR 1.10
APTT 33.3
Sodium 135
Potassium 3.5
Chloride 100
Carbon Dioxide 25
BUN 16
Creatinine 0.9
Glucose 112 H
Calcium 9.4
Total Bilirubin 0.6
AST 20
ALT 14
Alkaline Phosphatase 55
Vital Signs:
Vital Signs
Temp Pulse Resp BP Pulse Ox
98.7 F 82 20 145/78 95
06/29/24 07:31 06/29/24 08:07 06/29/24 07:31 06/29/24 08:07 06/29/24 07:31
Physical Exam
-
General: No Apparent Distress
HEENT: Normocephalic and Atraumatic
Respiratory: Clear to Auscultation
Cardiac: Regular Rhythm and S1/S2
GI: Soft, Nontender, Nondistended and Normal Bowel Sounds
Skin: Warm and Dry
Neuro: Awake, Alert, Oriented, AO x 3 and Other (Expressive aphasia, no ptosis, face symmetric, no facial droop and sensations intact. Tongue in midline. Strength 5/5 both upper and lower extremities. Sensations intact.. DTRs-2+ no pronator
drift.)
[2024-06-29 08:31] LABS: Glycohemoglobin (HgbA1c) 5.9 % (4.0-5.6)
--- NOTE | 2024-06-29 10:23 | PTOTSP ---
Speech Therapy Evaluation:
Given bedside performance, suspect pt's oropharyngeal within functional limits. Pt demonstrated adequate oral phase and no overt s/sx of aspiration across PO trials. Increased risk for post-prandial aspiration given hx of GERD. Pt passed 3oz swallow
screen. WBC increased, however downtrending. No CXR completed this admission. Pt appears appropriate to continue oral diet, although ST will continue to follow pending results of MRI.
Recommend:
1. Continue IDDSI Level 7 (regular) solids and thin liquids
2. Medications as tolerated
3. General aspiration and reflux precautions
4. CHUTE TAPPER to follow pending results of MRI
--- NOTE | 2024-06-29 10:43 | W.PN.NEURO.1 ---
Today's Communication / Plan
-
.
Subjective/Objective
Subjective Data
Date of Service: June 29, 2024
Neurology Follow up Note.
Ms. Lima reports no complaints. She denies having headache. The patient is unsure why she is in hospital. No change in vision.
She continues to be hypertensive.
According to patient's son on 06/26/2024 Ms. Lima defecated in her room. She remained in bed all day Thursday. On Thursday, she reported difficulty seeing out of one eye and insisted on going to the hospital due to feeling unwell and not eating for
over 24 hours. She has a history of migraines, which have recently increased in frequency, accompanied by visual disturbances described as 'squiggly lines.'
The patient's reportedly has had gradual decline in her cognitive function over the past several weeks. She has been exhibiting confusion, incorrectly identifying people and their relationships, and using wrong names. She has abandoned her
computer-based checkbook system and is no longer able to manage her finances independently. The patient voluntarily reduced her driving about 4 months ago due to declining memory.
Bryanna has been experiencing lethargy and has a history of hypertension. She has been prescribed medications for blood pressure and thyroid, as well as vitamins, but there are concerns about medication adherence.
CT head wo contrast-no acute abnormalities.
ua tox-neg, A1c 5.9, SARs-Cov02.
CRP 69.80, LDL 115, vit B12 609,
PMH: HTN, DLP, hypothyroidism, Vitamin D deficiency, GERD, LAURITA, migraine with aura
PSH:left lumpectomy, bilateral tubal ligation, hernia repair umbilical,
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
FH: Not pertinent to current presentation.
All: Aspirin, oxycodone, penicillin, Propoxyphene
ROS: positive for several months of progressive encephalopathy, right leg weakness
General: Well developed. In no acute distress.
Cardio: Regular rate and rhythm without murmur. Extremities are without cyanosis or edema.
Neuro:
Mental Status: Alert, oriented to name, year, month. Did not know the date. Nonfluent expressive aphasia. Follows simple requests intermittently.
Cranial Nerves: Pupils are equally round and reactive to light. EOMs full. Inconsistent visual field exam to confrontation. Blinks to threat bilaterally. No ptosis. No nystagmus. V1-V3 intact to light touch and pinprick bilaterally,
symmetric. Face symmetric. Normal hearing AU. The palate elevated well. SCMs and traps 5/5. Tongue midline. No dysarthria.
Motor: No pronator drift. Limited exam of lower extremities due to comprehension.
Reflexes: Limited exam due to cooperation
Sensory: Limited exam due to dysphagia
Coordination: No dysmetria or tremor.
Gait: deferred
Assessment and Plan:
I. Multifactorial encephalopathy (vascular vs infectious, metabolic)
II. HTN
III. Hypothyroidism
-Aspiration precautions.
-Please check TFTs, B12, UA, urine tox
-Brain MRI without laurita STAT
-Start IV thiamine
-Routine EEG
-UA, ux
-DVT prophylaxis.
I personally reviewed all radiology and labs along with past medical records pertinent to current medical problems. Total time spent in patient care is 56 minutes.
Thank you for allowing us to participate in the care of this patient. We will continue to follow. Please do not hesitate to contact us with any questions or concerns
Objective Data
Vital Signs
Temp Pulse Resp BP Pulse Ox
37.1 C 82 20 145/78 95
06/29/24 07:31 06/29/24 08:07 06/29/24 07:31 06/29/24 08:07 06/29/24 07:31
Lab Results
06/29/24 06:26
06/29/24 06:26
PT 14.5 Sec (11.4-14.6) 06/29/24 06:26
INR 1.10 06/29/24 06:26
APTT 33.3 Sec (23.4-35.0) 06/29/24 06:26
Sodium 135 mmol/L (135-145) 06/29/24 06:26
Potassium 3.5 mmol/L (3.5-5.1) 06/29/24 06:26
BUN 16 mg/dl (7-17) 06/29/24 06:26
Glucose 112 mg/dl (70-99) H 06/29/24 06:26
Calcium 9.4 mg/dl (8.4-10.2) 06/29/24 06:26
LDL Cholesterol, Calc 115 mg/dl 06/29/24 06:26
Vitamin B12 609 pg/ml (239-931) 06/29/24 06:26
Ur Buprenorphine Cancelled 06/29/24 04:14
Patient Allergies
oxycodone Allergy (Verified 06/28/24 13:05)
hallucinations, disorientation, nausea
propoxyphene napsylate [From Darvocet-N 100] Allergy (Verified 06/28/24 13:05)
Nausea
Vital Signs and Labs
-
Vital Signs and Labs:
Vital Signs
Temp Pulse Resp BP Pulse Ox
37.1 C 82 20 145/78 95
06/29/24 07:31 06/29/24 08:07 06/29/24 07:31 06/29/24 08:07 06/29/24 07:31
Lab Results
06/29/24 06:26
06/29/24 06:26
PT 14.5 Sec (11.4-14.6) 06/29/24 06:26
INR 1.10 06/29/24 06:26
APTT 33.3 Sec (23.4-35.0) 06/29/24 06:26
Sodium 135 mmol/L (135-145) 06/29/24 06:26
Potassium 3.5 mmol/L (3.5-5.1) 06/29/24 06:26
BUN 16 mg/dl (7-17) 06/29/24 06:26
Glucose 112 mg/dl (70-99) H 06/29/24 06:26
Calcium 9.4 mg/dl (8.4-10.2) 06/29/24 06:26
LDL Cholesterol, Calc 115 mg/dl 06/29/24 06:26
Vitamin B12 609 pg/ml (239-931) 06/29/24 06:26
Ur Buprenorphine Cancelled 06/29/24 04:14
Medications
-
Medications:
Generic Name Dose Route Start Last Admin
Trade Name Freq PRN Reason Stop Dose Admin
Bisoprolol Fumarate 10 mg 06/29/24 08:00 06/29/24 08:07
Bisoprolol Fumarate (Zebeta) 10 Mg Tablet PO 07/27/24 07:59 10 mg
DAILY ROGELIO Administration
Hydralazine HCl 5 mg 06/29/24 03:26 06/29/24 03:58
Hydralazine 20 Mg/Ml Vial IV 07/27/24 03:25 5 mg
Q4HPRN PRN Administration
sbp>170
Hydrochlorothiazide 6.25 mg 06/29/24 08:00 06/29/24 08:07
Hydrochlorothiazide 12.5 Mg Tablet PO 07/27/24 07:59 6.25 mg
DAILY ROGELIO Administration
Sodium Chloride 0 flush 06/28/24 23:00
Sodium Chloride 0.9% (Flush) Syringe IV 07/26/24 22:59
PER PROTOCOL ROGELIO
Home Medications
-
Home Medications
bisoprolol 10 mg-hydrochlorothiazide 6.25 mg tablet 1 tab PO DAILY 08/08/23
[2024-06-29] MEDS: THIAMINE INJECTION IV (14:03)
[2024-06-29] MEDS: PLAVIX 75 MG PO (15:12)
[2024-06-29] MEDS: LOW STRENGTH ASPIRIN 81 MG PO (15:12)
[2024-06-29] MEDS: THIAMINE INJECTION 100 MG IV (16:42)
--- NOTE | 2024-06-29 16:51 | CM ---
Addendum entered by Chantel Miller 06/29/24 17:00:
PT is recommending acute care rehab. CM will discuss options with patient and family
Original Note:
Patient seen at bedside with son in law and son, daughter in room. Patient stated that she has no DME at home. Patient lives in a 2 story home, first floor set up. Patient son is primary caregiver and does cooking and shopping. Patient is still
driving and complained of migrains. Patient PCP is Dr. Patel and patient uses the [facility] for short term pharmacy needs. Patient also stated that she really wants to go home but understands that she will work with therapy and they
will make recommendations. Patient was OBS but now changed to INP status. CM will continue to follow for discharge planning needs.
Plan; home with VN vs SNF
--- NOTE | 2024-06-29 18:59 | EEGC.RPT ---
Continuous EEG Report
Recording
Start Date of Data Reviewed: 06/29/24
Report
�TECHNICAL REMARKS:��This is a technically satisfactory eighteen channel record employing 21 disc electrodes applied according to a measured international 10-20 electrode placement system.��There were no significant technical difficulties.��The
study was done on a [employer] System.
CLINICAL INFORMATION: This is an 89-year-old woman with encephalopathy. This study was requested to look for epileptiform activity.
STUDY DURATION:� 28 min,�46 secs
MEDICATIONS: no AED
REPORT: �At the onset of the EEG, the patient is awake. The background activity consists of 9-9.5 Hz, persistent, posteriorly dominant, moderate amplitude, a, and rhythmic activity. Anteriorly, it consists of a mixture of low voltage indeterminate
activity and 20-25 Hz, persistent, low amplitude, symmetric, and rhythmic activity. Intermittent left occipital slowing is present. Stepwise intermittent photic stimulation (1-31 Hz) does not induce any abnormalities. Hyperventilation is not
performed. Drowsiness is characterized by low amplitude mixed frequency activity, roving eye movements, and decreased eye blinking and muscle artifact.
�
IMPRESSION: �This is an abnormal awake and drowsy EEG due to intermittent left occipital slowing indicative of focal cerebral dysfunction. There is no evidence of focal slowing or epileptiform activity.
[2024-06-30] VITALS (7 sets, daily range): BP systolic 149–175; BP diastolic 69–115; PULSE 65; O2SAT 97
--- NOTE | 2024-06-30 07:54 | W.PN.HOSP.TC ---
Addendum entered and electronically signed by Taisha Elizondo MD 06/30/24 18:32:
I saw and evaluated the patient independently. I reviewed the resident�s note and agree with findings and plan as documented by Dr. Castillo.
GENERAL: well developed, well nourished, female in no apparent distress
HEENT: NC/AT
HEART: regular rate and rhythm, +S1, +S2
LUNGS : clear to auscultation bilaterally
ABDOM: soft, nontender, nondistended, + bowel sounds
EXT: no cyanosis, clubbing, or edema
NEUROLOGIC: expressive aphasia, 'blind spot as could not see her daughter who was to her right', strength 5/5 all extremities
Visual defect/aphasia--Right homonymous hemianopia, expressive aphasia--MRI consistent with acute to subacute stroke--head CT in ED neg and head and neck CTA neg--apprec neuro--agree with starting asa/plavix, outpt holter monitor-- ECHO essentially
WNL, EF 60-65%--therapy recommending acute rehab, await PM&R-- EEG neg--B12 WNL, urine tox screen neg--strong family history with daughter, sons with CVAs--consider hypercoagulable workup as outpt
delirium?/sundowning?--early dementia?--pt seems better when I saw her in her room with her family--maybe more cognitive issues are there than first thought
Hypothyroidism--TFT�elevated TSH at 7.75--Patient was prescribed 112 mcg levothyroxine, but she stopped taking it--restart
Leukocytosis--unclear cause--stress reaction?--no signs of infection
History of melena?--son relates black diarrhea that appeared to have blood in it--HGB stable
Essential Hypertension--Continue bisoprolol/hydrochlorothiazide
DM II--Accucheck AC & HS--SSI-- HGB A1C 5.9
DVT proph
code status--FULL
pt should NOT drive--told her and her family
Original Note:
Today's Communication/Plan
-
Patient needs to be seen by physiatry for acute rehab
Assessment / Plan
Assessment / Plan
89-year-old female with past medical history of hypothyroidism, essential hypertension, migraine, breast cancer presented to the ER reporting headache, speech issues and vision changes. She is not able to see on the right side of her visual field.
This has been ongoing for a month but has worsened in the past week. Patient's son reported that he noticed some speech defect. Also patient had bowel incontinence 2 days ago and son reported that she passed dark stools. There was a history of
TIA 7 years ago, but she was not started on any medications. Only medication she takes at home is bisoprolol/hydrochlorothiazide.
Impression/plan
Visual defect/aphasia
Right homonymous hemianopia, expressive aphasia
CT head�no evidence of acute intracranial abnormality
CT angiogram head/neck� There is no evidence for significant narrowing of the carotid bulbs or proximal internal carotid arteries bilaterally.Dominant right vertebral artery with small caliber left vertebral artery.
MRI brain�acute to subacute infarct of the medial left occipital lobe and the left MEDICARE INSURANCE SPECIALIST distribution.
Started on aspirin 81 mg, clopidogrel 75 mg X21 days
OP Holter monitoring and cardiology follow up as per neurology
Echo- No regional wall motion abnormalities are seen. LV ejection fraction is 60-65% . Normal diastolic function.
Normal right ventricular size and function.
No significant valvular pathology. No thrombus/intracardiac mass.
Neurology following
B12�609, urine toxicology negative
EEG - intermittent left occipital slowing indicative of focal cerebral dysfunction. There is no evidence of focal slowing or epileptiform activity.
PT/OT recommended acute rehab
Delirium
Likely a component of dementia
Electrolytes normal
No elevated white count, patient is afebrile
Monitor
Reorient
Hypothyroidism
TFT�elevated TSH at 7.75
Patient was prescribed 112 mcg levothyroxine, but she stopped taking it.
Resume
History of melena
Hemoglobin stable
Monitor
Hypertension
Continue bisoprolol/hydrochlorothiazide
DM II
Accucheck AC & HS
SSI
A1C 5.9
DVT prophylaxis SCDs
Full code
Anticipated Discharge: 24 - 48 hours
Subjective/Interval History
-
Date of Service: June 30, 2024
As per the nursing staff�patient was mildly agitated in the morning, got out of the bed and was walking in the corridor. Since 4 AM, she was in the nursing station for observation.
Patient stated that she did not want to be in her room, stating that someone might be visiting her in the nursing station. She appeared disoriented and confused.
Objective Data
-
Labs:
Laboratory Results
06/30/24
06:00
WBC Pending
Hgb Pending
Hct Pending
Plt Count Pending
Sodium Pending
Potassium Pending
Chloride Pending
Carbon Dioxide Pending
BUN Pending
Creatinine Pending
Glucose Pending
Calcium Pending
Total Bilirubin Pending
AST Pending
ALT Pending
Alkaline Phosphatase Pending
Vital Signs:
Vital Signs
Temp Pulse Resp BP Pulse Ox
98.8 F 80 18 154/86 98
06/30/24 07:32 06/30/24 07:32 06/30/24 07:32 06/30/24 07:32 06/30/24 07:32
I&O
06/29/24 06/30/24 07/01/24
06:59 06:59 06:59
Intake Total 1080 / 1080
Balance 1080 / 1080
Physical Exam
-
General: Other (Appears disoriented)
HEENT: Normocephalic and Atraumatic
Respiratory: Clear to Auscultation
Cardiac: Regular Rhythm and S1/S2
Skin: Warm and Dry
Neuro: Awake, Alert, No Motor Deficits and Other (Aphasic); Negative Oriented
Psych: Confused
--- NOTE | 2024-06-30 10:28 | W.PN.NEURO.1 ---
Addendum entered and electronically signed by Makayla Huggins MD 06/30/24 10:53:
OP Holter monitoring and cardiology follow up.
Original Note:
Today's Communication / Plan
-
.
Subjective/Objective
Subjective Data
Date of Service: June 30, 2024
Neurology Follow up Note.
24h events: restless in the morning. Intermittently hypertensive up to 203/, afebrile
Ms. Lima offers no complaints. Continues to be encephalopathic. No reports of headaches.
Brain MRI�acute left TILE MACHINE OPERATOR infarct.
Routine EEG�intermittent left occipital slowing.
TTE-Interatrial septum is intact with no evidence of shunting by color flow Doppler. No intracardiac mass or thrombus formation seen.
CRP 69.80, LDL 115, ESR-7
PMH: HTN, DLP, hypothyroidism, Vitamin D deficiency, GERD, CHRIS, migraine with aura
PSH:left lumpectomy, bilateral tubal ligation, hernia repair umbilical,
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
FH: Not pertinent to current presentation.
All: Aspirin, oxycodone, penicillin, Propoxyphene
ROS: positive for several months of progressive encephalopathy, right leg weakness
General: Well developed. In no acute distress.
Cardio: Regular rate and rhythm without murmur. Extremities are without cyanosis or edema.
Neuro:
Mental Status: Alert, oriented to name, year, month. Did not know the date. Poor comprehension, able to repeat. Able to repeat. Transcortical sensory aphasia. No hemineglect.
Cranial Nerves: Pupils are equally round and reactive to light. EOMs full. Right hemianopsia blinks to threat bilaterally. No ptosis. No nystagmus. V1-V3 intact to light touch and pinprick bilaterally, symmetric. Face symmetric. Normal
hearing AU. The palate elevated well. SCMs and traps 5/5. Tongue midline. No dysarthria.
Motor: No pronator drift. Limited exam of lower extremities due to comprehension.
Reflexes: Limited exam due to cooperation
Sensory: Limited exam due to encephalopathy
Gait: deferred
Assessment and Plan:
I. 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
II. Multifactorial encephalopathy (vascular, inflammatory?)
III. Elevated CRP/leukocytosis
-Delirium precautions
-Continue DAPT for 21 days
-Lipitor 40 mg nightly
-ua/ua cx
-Speech therapy
-DVT prophylaxis.
-Outpatient neurology follow-up
I personally reviewed all radiology and labs along with past medical records pertinent to current medical problems. Total time spent in patient care is 40 minutes.
Thank you for allowing us to participate in the care of this patient. Please do not hesitate to contact us with any questions or concerns
Objective Data
Vital Signs
Temp Pulse Resp BP Pulse Ox
37.1 C 80 18 154/86 98
06/30/24 07:32 06/30/24 07:32 06/30/24 07:32 06/30/24 07:32 06/30/24 07:32
PT 14.5 Sec (11.4-14.6) 06/29/24 06:26
INR 1.10 06/29/24 06:26
APTT 33.3 Sec (23.4-35.0) 06/29/24 06:26
Sodium 135 mmol/L (135-145) 06/29/24 06:26
Potassium 3.5 mmol/L (3.5-5.1) 06/29/24 06:26
BUN 16 mg/dl (7-17) 06/29/24 06:26
Glucose 112 mg/dl (70-99) H 06/29/24 06:26
Calcium 9.4 mg/dl (8.4-10.2) 06/29/24 06:26
LDL Cholesterol, Calc Cancelled 06/30/24 08:01
Vitamin B12 609 pg/ml (076-176) 06/29/24 06:26
Ur Buprenorphine Cancelled 06/29/24 04:14
Patient Allergies
oxycodone Allergy (Verified 06/28/24 13:05)
hallucinations, disorientation, nausea
propoxyphene napsylate [From Darvocet-N 100] Allergy (Verified 06/28/24 13:05)
Nausea
Vital Signs and Labs
-
Vital Signs and Labs:
Vital Signs
Temp Pulse Resp BP Pulse Ox
37.1 C 80 18 154/86 98
06/30/24 07:32 06/30/24 07:32 06/30/24 07:32 06/30/24 07:32 06/30/24 07:32
PT 14.5 Sec (11.4-14.6) 06/29/24 06:26
INR 1.10 06/29/24 06:26
APTT 33.3 Sec (23.4-35.0) 06/29/24 06:26
Sodium 135 mmol/L (135-145) 06/29/24 06:26
Potassium 3.5 mmol/L (3.5-5.1) 06/29/24 06:26
BUN 16 mg/dl (7-17) 06/29/24 06:26
Glucose 112 mg/dl (70-99) H 06/29/24 06:26
Calcium 9.4 mg/dl (8.4-10.2) 06/29/24 06:26
LDL Cholesterol, Calc Cancelled 06/30/24 08:01
Vitamin B12 609 pg/ml (962-808) 06/29/24 06:26
Ur Buprenorphine Cancelled 06/29/24 04:14
Medications
-
Medications:
Generic Name Dose Route Start Last Admin
Trade Name Freq PRN Reason Stop Dose Admin
Aspirin 81 mg 06/29/24 15:00 06/29/24 15:12
Aspirin 81 Mg Chewable Tablet PO 07/27/24 14:59 81 mg
DAILY ROGELIO Administration
Atorvastatin Calcium 40 mg 06/30/24 18:00
Atorvastatin (Lipitor) 20 Mg Tablet PO 07/28/24 17:59
QPM ROGELIO
Bisoprolol Fumarate 10 mg 06/29/24 08:00 06/29/24 08:07
Bisoprolol Fumarate (Zebeta) 10 Mg Tablet PO 07/27/24 07:59 10 mg
DAILY ROGELIO Administration
Clopidogrel Bisulfate 75 mg 06/29/24 15:00 06/29/24 15:12
Clopidogrel 75 Mg Tablet PO 07/27/24 14:59 75 mg
DAILY ROGELIO Administration
Hydralazine HCl 5 mg 06/29/24 03:26 06/29/24 22:28
Hydralazine 20 Mg/Ml Vial IV 07/27/24 03:25 5 mg
Q4HPRN PRN Administration
sbp>170
Hydrochlorothiazide 6.25 mg 06/29/24 08:00 06/29/24 08:07
Hydrochlorothiazide 12.5 Mg Tablet PO 07/27/24 07:59 6.25 mg
DAILY ROGELIO Administration
Levothyroxine Sodium 112 mcg 06/30/24 08:00
Levothyroxine 112 Mcg Tablet PO 07/28/24 07:59
DAILY @ 0600 ROGELIO
Sodium Chloride 0 flush 06/28/24 23:00
Sodium Chloride 0.9% (Flush) Syringe IV 07/26/24 22:59
PER PROTOCOL ROGELIO
Home Medications
-
Home Medications
bisoprolol 10 mg-hydrochlorothiazide 6.25 mg tablet 1 tab PO DAILY 08/08/23
[2024-06-30] MEDS: LOW STRENGTH ASPIRIN 81 MG PO (10:54)
[2024-06-30] MEDS: ZEBETA 10 MG PO (10:54)
[2024-06-30] MEDS: ORETIC 6.25 MG PO (10:54)
[2024-06-30] MEDS: PLAVIX 75 MG PO (10:55)
[2024-06-30] MEDS: SYNTHROID 112 MCG PO (10:56)
[2024-06-30 12:04] LABS: % Basophils 0.6 % (0-2); % Immature Granulocytes 0.4 % (0-0.5); % Lymphocytes 14.6 % (20.5-51.1); % Monocytes 6.8 % (1.7-9.3); % Neutrophils 76.6 % (42.2-75.2); Absolute Basophils 0.1 10^3/uL (0-0.2); Absolute Eosinophils 0.1 10^3/uL (0-0.7); Absolute Immature Granulocytes 0.1 10^3/uL (0-0.05); Absolute Lymphocytes 1.8 10^3/uL (1.2-3.4); Absolute Monocytes 0.9 10^3/uL (0.1-0.6); Absolute Neutrophils 9.6 10^3/uL (1.4-6.5); Hematocrit 42.4 % (37.0-47.0); Hemoglobin 14.7 g/dL (12.0-16.0); Mean Corp Hgb Conc. 34.7 g/dL (33.0-37.0); Mean Corpuscular Hgb 29.3 pg (27.0-31.0); Mean Corpuscular Volume 84.6 fL (81.0-99.0); Mean Platelet Volume 10.6 fL (7.4-10.4); Nucleated Red Blood Cells % 0 %; Platelet Count 263 10^3/uL (130-400); Red Blood Cell Count 5.01 10^6/uL (4.20-5.40); Red Cell Dist. Width 13.5 % (11.5-14.5); White Blood Cell Count 12.5 10^3/uL (4.8-10.8)
[2024-06-30 13:34] LABS: ALT (SGPT) 17 U/L (0-35); AST (SGOT) 25 U/L (14-36); Albumin 4.6 g/dl (3.5-5.0); Alkaline Phosphatase 68 U/L (38-126); Blood Urea Nitrogen 19 mg/dl (7-17); Calcium 9.9 mg/dl (8.4-10.2); Carbon Dioxide 26 mmol/L (22-30); Chloride 92 mmol/L (98-107); Estimated Creatinine Clearance 40 ml/min; Glucose 152 mg/dl (70-99); HDL Cholesterol 60 mg/dl; LDL Cholesterol, Calculated 137 mg/dl; Potassium 3.8 mmol/L (3.5-5.1); Sodium 131 mmol/L (135-145); Total Bilirubin 0.7 mg/dl (0.2-1.3); Total Cholesterol 219 mg/dl (50-199); Total Protein 6.9 g/dl (6.3-8.2); Triglyceride 111 mg/dl (10-149); Very Low Density Lipoprotein 22 mg/dl (0-30); eGFR 53.85
[2024-06-30] MEDS: LIPITOR 40 MG PO (17:15)
--- NOTE | 2024-06-30 19:00 | PTCARENOTE ---
Addendum entered by Selina Schaffer RN 07/01/24 07:24:
1999: Patient got out of two point restraints. Bed alarm going off. When staff entered room patient became aggressive. Patient proceeded to go into another patients room. Sheila burns called. Patient escorted back to bed by security, restraints
applied. Patient spitting and biting, spit mask applied. OVEN HEATER HELPER at bedside, patient moved to 3 west. Report given to nurse. Restraints maintained, patient calm at this time.
Original Note:
Patient at nurses station in recliner chair. Patient attempted to get up and leave. Staff tried to reorient patient and asked patient to sit down. When asked to sit down patient became aggressive, hitting, and yelling at staff. Code garnt was
called. Patient brought back to bed by security. OVEN HEATER HELPER at bedside restraints ordered and obtained. Will continue with current plan.
--- NOTE | 2024-06-30 19:24 | W.PN.UPDATE ---
Update Note
Progress Note Update
Sheila burns called
correctional guard outside room.
RN reports patient got restless and wanting to get up and leave. Patient was escorted and placed in bed with the help of security public safety officer, restraints placed as she was swinging at the staff.
STUDENT ACCOUNTS COORDINATOR saw patient in room. Patient had her eyes closed and didn't want to talk at first. After few minutes she responded saying all she was trying to do was go home and that she did not wanted to be here and upset they have 'cuffed' her.
This STUDENT ACCOUNTS COORDINATOR tried reorienting and verbally residential child care counselor. Patient closed her eyes and didn't wanted to respond anymore.
At 1999 Sheila grant called again.
RN reported patient managed to be out of restraints and walked to another patient's room. Patient wasn't cooperative to go back to her room. Security guards helped nurses to get her back in bed. 4 point restraints placed.
IV Haldol 0.5mg ordered, advised to give if patient gets too agitated again.
Electrolytes noted, NSS 250CC @ 100/hr
may hold hydrochlorothiazide.
[2024-06-30] MEDS: NSS 250 IV (20:59)
[2024-07-01] VITALS (7 sets, daily range): BP systolic 125–176; BP diastolic 65–85
[2024-07-01] MEDS: SYNTHROID 112 MCG PO (05:43)
[2024-07-01 06:44] LABS: Hematocrit 42.9 % (37.0-47.0); Mean Corpuscular Hgb 29.7 pg (27.0-31.0); Mean Platelet Volume 10.7 fL (7.4-10.4); Platelet Count 275 10^3/uL (130-400); Red Blood Cell Count 5.05 10^6/uL (4.20-5.40); Red Cell Dist. Width 13.2 % (11.5-14.5); White Blood Cell Count 12.4 10^3/uL (4.8-10.8)
[2024-07-01 07:01] LABS: ALT (SGPT) 19 U/L (0-35); AST (SGOT) 30 U/L (14-36); Albumin 4.4 g/dl (3.5-5.0); Alkaline Phosphatase 68 U/L (38-126); Blood Urea Nitrogen 24 mg/dl (7-17); Calcium 9.7 mg/dl (8.4-10.2); Carbon Dioxide 23 mmol/L (22-30); Chloride 97 mmol/L (98-107); Estimated Creatinine Clearance 40 ml/min; Glucose 147 mg/dl (70-99); Potassium 3.8 mmol/L (3.5-5.1); Sodium 134 mmol/L (135-145); Total Protein 6.8 g/dl (6.3-8.2); eGFR 53.85
[2024-07-01] MEDS: ORETIC 6.25 MG PO (07:57)
[2024-07-01] MEDS: LOW STRENGTH ASPIRIN 81 MG PO (07:57)
[2024-07-01] MEDS: ZEBETA 10 MG PO (07:57)
[2024-07-01] MEDS: PLAVIX 75 MG PO (07:57)
--- NOTE | 2024-07-01 08:09 | W.PN.HOSP.TC ---
Addendum entered and electronically signed by Debora Wong MD 07/01/24 16:06:
I saw and evaluated the patient. I reviewed the resident�s note and agree with findings and plan as documented in the resident�s note.
A/P:
Visual defect/aphasia--Right homonymous hemianopia, expressive aphasia--MRI consistent with acute to subacute stroke in medial left occipital lobe in the left SKI GUIDE distribution.
apprec neuro--agree with starting asa/plavix, outpt holter monitor-- ECHO essentially WNL, EF 60-65%--therapy recommending acute rehab, await PM&R-- EEG neg--B12 WNL, urine tox screen neg--strong family history with daughter, sons with
CVAs--consider hypercoagulable workup as outpt
delirium?/sundowning?--early dementia? MS improves with family at bedside
Hypothyroidism--TFT�elevated TSH at 7.75--Patient was prescribed 112 mcg levothyroxine, but she stopped taking it--restart Synthroid, recc TSH reflex FT4 in 4-6 weeks
Leukocytosis--unclear cause--stress reaction?--no signs of infection
History of melena?--son relates black diarrhea that appeared to have blood in it--HGB stable
Essential Hypertension--Continue bisoprolol/hydrochlorothiazide
DM II--Accucheck AC & HS--SSI-- HGB A1C 5.9
DVT proph
code status--FULL
Original Note:
Today's Communication/Plan
-
Awaiting acute rehab consult/placement.
Assessment / Plan
Assessment / Plan
89-year-old female with past medical history of hypothyroidism, essential hypertension, migraine, breast cancer presented to the ER reporting headache, speech issues and vision changes. She is not able to see on the right side of her visual field.
This has been ongoing for a month but has worsened in the past week. Patient's son reported that he noticed some speech defect. Also patient had bowel incontinence 2 days ago and son reported that she passed dark stools. There was a history of
TIA 7 years ago, but she was not started on any medications. Only medication she takes at home is bisoprolol/hydrochlorothiazide.
Impression/plan
Awaiting acute rehab consult.
Visual defect/aphasia
Right homonymous hemianopia, expressive aphasia
CT head�no evidence of acute intracranial abnormality
CT angiogram head/neck� There is no evidence for significant narrowing of the carotid bulbs or proximal internal carotid arteries bilaterally.Dominant right vertebral artery with small caliber left vertebral artery.
MRI brain�acute to subacute infarct of the medial left occipital lobe and the left SKI GUIDE distribution.
Started on aspirin 81 mg, clopidogrel 75 mg X21 days
OP Holter monitoring and cardiology follow up as per neurology
Echo- No regional wall motion abnormalities are seen. LV ejection fraction is 60-65% . Normal diastolic function.
Normal right ventricular size and function.
No significant valvular pathology. No thrombus/intracardiac mass.
Neurology following
B12�609, urine toxicology negative
EEG - intermittent left occipital slowing indicative of focal cerebral dysfunction. There is no evidence of focal slowing or epileptiform activity.
PT/OT recommended acute rehab
Delirium
Likely a component of dementia
Electrolytes normal
No elevated white count, patient is afebrile
Monitor
Patient was placed in 4 point restraints yesterday, Haldol ordered but never given.
Continue to reorient.
Hypothyroidism
TFT�elevated TSH at 7.75
Patient was prescribed 112 mcg levothyroxine, but she stopped taking it.
Resume
History of melena
Hemoglobin stable
Monitor
Hypertension
Continue bisoprolol/hydrochlorothiazide
DM II
Accucheck AC & HS
SSI
A1C 5.9
DVT prophylaxis SCDs
Full code
Anticipated Discharge: 24 - 48 hours
Subjective/Interval History
-
Date of Service: July 01, 2024
Patient is responding to questions, appears confused and disoriented. She is in 4 point restraints.
As per the night hospitalist� 'At 1999 Code grant called again.
RN reported patient managed to be out of restraints and walked to another patient's room. Patient wasn't cooperative to go back to her room. Security guards helped nurses to get her back in bed. 4 point restraints placed'
Objective Data
-
Labs:
Laboratory Results
07/01/24
06:02
WBC 12.4 H
Hgb 15.0
Hct 42.9
Plt Count 275
Sodium 134 L
Potassium 3.8
Chloride 97 L
Carbon Dioxide 23
BUN 24 H
Creatinine 1.0
Glucose 147 H
Calcium 9.7
Total Bilirubin 1.0
AST 30
ALT 19
Alkaline Phosphatase 68
Vital Signs:
Vital Signs
Temp Pulse Resp BP Pulse Ox
97.6 F 72 18 176/80 95
07/01/24 03:22 07/01/24 07:57 07/01/24 03:22 07/01/24 07:57 07/01/24 03:22
I&O
06/30/24 07/01/24 07/02/24
06:59 06:59 06:59
Intake Total 1080 / 1080 250 / 250
Balance 1080 / 1080 250 / 250
Physical Exam
-
General: No Apparent Distress
HEENT: Normocephalic and Atraumatic
Respiratory: Clear to Auscultation
Cardiac: Regular Rhythm and S1/S2
GI: Soft, Nontender, Nondistended and Normal Bowel Sounds
Skin: Warm and Dry
Neuro: Awake and Alert; Negative Oriented
Psych: Confused
[2024-07-01 10:25] LABS: Urine Albumin Negative (Neg - Trace); Urine Bilirubin Negative (Negative); Urine Character Slightly Cloudy (Clear); Urine Color Yellow; Urine Glucose Negative (Negative); Urine Ketone 1+ (Negative); Urine Leukocyte Negative (Negative); Urine Nitrite Negative (Negative); Urine Occult Blood 1+ (Negative); Urine Urobilinogen Negative (Neg - 1+)
[2024-07-01 11:00] LABS: Urine Amorphous Seen; Urine Mucus Few; Urine Squamous Cell 16-20 /LPF (Few)
[2024-07-01 11:02] LABS: Urine Bacteria Few (Negative); Urine White Cell 0-2 /HPF (0-5)
--- NOTE | 2024-07-01 11:48 | PN.CDI ---
CDI
- -
CDI:
Physician Documentation Request
Admit Date: 06/29/24 13:50
Dear Doctor Sally Castillo,
Patient admitted for stroke.
Recent sodium results:
Laboratory Tests
06/29/24 06/30/24 07/01/24
06:26 11:48 06:02
Sodium 135 131 L 134 L
Could you provide a diagnosis that supports the above lab abnormalities and additional evaluation/monitoring:
Hyponatremia
Abnormal lab value clinically insignificant
Other
Use of terms such as suspected, likely, concern for, or probable (associated with a specific diagnosis that is being evaluated, monitored, or treated as if it exists) are acceptable and can be coded in the inpatient setting, when documented at the
time of discharge.
Thank you,
Nilam Valencia RN, BSN
CDI Specialist
tiger text
Please use your independent medical judgment in providing your response.
--- NOTE | 2024-07-01 15:15 | CM ---
Patient seen at bedside sleeping after being awake most of the night per son and daughter. Patient remains in arm restraints at this time. Patient family continues to hope for [facility] but understands that SNF may be needed. Patient is an [facility]
patient and family would like her to be referred to [facility] if SNF level. Patient son stated that patient had all medications in her pill box and she apparently was not taking them despite him 'bugging her about medications'. CM will
continue to follow for discharge planning needs.
Plan; [facility] vs SNF pending functional status closer to discharge.
--- NOTE | 2024-07-01 16:34 | PTCARENOTE ---
Pt. received by customer specialist nurse in 4 point B/L wrist and leg restraints due to a code purple event up on the 4th floor. Pt. sleepy but arousable all day. Pt. monitored throughout the day. At 1200, this nurse trailed taking the leg restraints off.
Pt. tolerated this well and there were no incidents. New restraints orders placed by the MD for B/L upper wrist restraints and four rails. Will continue to monitor pt.and her progress.
[2024-07-01] MEDS: LIPITOR 40 MG PO (17:06)
[2024-07-02] MEDS: SYNTHROID 112 MCG PO (05:06)
[2024-07-02 06:48] LABS: % Basophils 1.1 % (0-2); % Eosinophils 3.6 % (0-6); % Lymphocytes 21.5 % (20.5-51.1); % Monocytes 8.2 % (1.7-9.3); % Neutrophils 64.6 % (42.2-75.2); Absolute Basophils 0.1 10^3/uL (0-0.2); Absolute Eosinophils 0.4 10^3/uL (0-0.7); Absolute Immature Granulocytes 0.1 10^3/uL (0-0.05); Absolute Lymphocytes 2.6 10^3/uL (1.2-3.4); Absolute Neutrophils 7.9 10^3/uL (1.4-6.5); Hematocrit 42.7 % (37.0-47.0); Hemoglobin 14.8 g/dL (12.0-16.0); Mean Corp Hgb Conc. 34.7 g/dL (33.0-37.0); Mean Corpuscular Hgb 29.9 pg (27.0-31.0); Mean Corpuscular Volume 86.3 fL (81.0-99.0); Mean Platelet Volume 10.6 fL (7.4-10.4); Nucleated Red Blood Cells % 0 %; Platelet Count 285 10^3/uL (130-400); Red Blood Cell Count 4.95 10^6/uL (4.20-5.40); Red Cell Dist. Width 13.2 % (11.5-14.5); White Blood Cell Count 12.3 10^3/uL (4.8-10.8)
[2024-07-02 07:00] VITALS: BP 172/87
[2024-07-02 07:17] LABS: ALT (SGPT) 17 U/L (0-35); AST (SGOT) 25 U/L (14-36); Albumin 3.9 g/dl (3.5-5.0); Alkaline Phosphatase 59 U/L (38-126); Blood Urea Nitrogen 36 mg/dl (7-17); Calcium 9.9 mg/dl (8.4-10.2); Carbon Dioxide 32 mmol/L (22-30); Chloride 95 mmol/L (98-107); Estimated Creatinine Clearance 29 ml/min; Glucose 106 mg/dl (70-99); Potassium 4.4 mmol/L (3.5-5.1); Sodium 134 mmol/L (135-145); Total Bilirubin 0.9 mg/dl (0.2-1.3); Total Protein 6.3 g/dl (6.3-8.2); eGFR 35.96
[2024-07-02] MEDS: LOW STRENGTH ASPIRIN 81 MG PO (08:42)
[2024-07-02] MEDS: ZEBETA 10 MG PO (08:43)
[2024-07-02] MEDS: ORETIC 6.25 MG PO (08:43)
[2024-07-02] MEDS: PLAVIX 75 MG PO (08:44)
--- NOTE | 2024-07-02 09:12 | W.PN.HOSP.TC ---
Addendum entered and electronically signed by Taisha Elizondo MD 07/02/24 14:47:
I saw and evaluated the patient independently. I reviewed the resident�s note and agree with findings and plan as documented by Dr. Castillo.
GENERAL: well developed, well nourished, female in no apparent distress
HEENT: NC/AT
HEART: regular rate and rhythm, +S1, +S2
LUNGS : clear to auscultation bilaterally
ABDOM: soft, nontender, nondistended, + bowel sounds
EXT: no cyanosis, clubbing, or edema
NEUROLOGIC: expressive aphasia, 'blind spot as could not see her daughter who was to her right', strength 5/5 all extremities
Visual defect/aphasia--Right homonymous hemianopia, expressive aphasia--MRI consistent with acute to subacute stroke--head CT in ED neg and head and neck CTA neg--apprec neuro-- asa/plavix x 21 days, outpt holter monitor-- ECHO essentially WNL, EF
60-65%--therapy recommending acute rehab, await PM&R-- EEG neg--B12 WNL, urine tox screen neg--strong family history with daughter, sons with CVAs--consider hypercoagulable workup as outpt
delirium?/sundowning?--early dementia?--was in 4 point restraints--? sleep deprivation--off restraints and much improved -- suspect more cognitive issues are there than first thought
Hypothyroidism--TFT�elevated TSH at 7.75--Patient was prescribed 112 mcg levothyroxine, but she stopped taking it--restart
Leukocytosis--unclear cause--stress reaction?--no signs of infection
History of melena?--son relates black diarrhea that appeared to have blood in it--HGB stable
Essential Hypertension--Continue bisoprolol/hydrochlorothiazide
DM II--Accucheck AC & HS--SSI-- HGB A1C 5.9
DVT proph
code status--FULL
Original Note:
Today's Communication/Plan
-
Waiting for acute rehab consult.
Assessment / Plan
Assessment / Plan
89-year-old female with past medical history of hypothyroidism, essential hypertension, migraine, breast cancer presented to the ER reporting headache, speech issues and vision changes. She is not able to see on the right side of her visual field.
This has been ongoing for a month but has worsened in the past week. Patient's son reported that he noticed some speech defect. Also patient had bowel incontinence 2 days ago and son reported that she passed dark stools. There was a history of
TIA 7 years ago, but she was not started on any medications. Only medication she takes at home is bisoprolol/hydrochlorothiazide.
Impression/plan
Awaiting acute rehab consult.
Visual defect/aphasia
Right homonymous hemianopia, expressive aphasia
CT head�no evidence of acute intracranial abnormality
CT angiogram head/neck� There is no evidence for significant narrowing of the carotid bulbs or proximal internal carotid arteries bilaterally.Dominant right vertebral artery with small caliber left vertebral artery.
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
Started on aspirin 81 mg, clopidogrel 75 mg X21 days
OP Holter monitoring and cardiology follow up as per neurology
Echo- No regional wall motion abnormalities are seen. LV ejection fraction is 60-65% . Normal diastolic function.
Normal right ventricular size and function.
No significant valvular pathology. No thrombus/intracardiac mass.
Neurology following
Family history of CVAs�recommend hypercoagulable workup as outpatient
B12�609, urine toxicology negative
EEG - intermittent left occipital slowing indicative of focal cerebral dysfunction. There is no evidence of focal slowing or epileptiform activity.
PT/OT recommended acute rehab
Delirium
Likely a component of dementia
No elevated white count, patient is afebrile
Monitor
Patient was placed in 4 point restraints, now off of restraints., Haldol ordered but never given.
Continue to reorient.
Elevated BUN and creatinine
BUN�36, creatinine�1.4
Likely from dehydration
Will monitor BMP
Hypothyroidism
TFT�elevated TSH at 7.75
Patient was prescribed 112 mcg levothyroxine, but she stopped taking it.
Resume
History of melena
Hemoglobin stable
Monitor
Hypertension
Continue bisoprolol/hydrochlorothiazide
DM II
Accucheck AC & HS
SSI
A1C 5.9
DVT prophylaxis SCDs
Full code
Anticipated Discharge: 24 - 48 hours
Subjective/Interval History
-
Date of Service: July 02, 2024
Patient is alert and oriented. No overnight episodes of agitation/confusion-as per nursing.
Patient reports that she is very hungry and thirsty, did not feel like eating or drinking anything yesterday evening.
Objective Data
-
Labs:
Laboratory Results
07/02/24
06:23
WBC 12.3 H
Hgb 14.8
Hct 42.7
Plt Count 285
Sodium 134 L
Potassium 4.4
Chloride 95 L
Carbon Dioxide 32 H
BUN 36 H
Creatinine 1.4 H
Glucose 106 H
Calcium 9.9
Total Bilirubin 0.9
AST 25
ALT 17
Alkaline Phosphatase 59
Vital Signs:
Vital Signs
Temp Pulse Resp BP Pulse Ox
97.7 F 65 16 172/87 95
07/02/24 07:00 07/02/24 08:43 07/02/24 07:00 07/02/24 08:43 07/02/24 07:00
I&O
07/01/24 07/02/24 07/03/24
06:59 06:59 06:59
Intake Total 250 / 250 610 / 610
Balance 250 / 250 610 / 610
Physical Exam
-
General: No Apparent Distress
HEENT: Normocephalic and Atraumatic
Respiratory: Clear to Auscultation
Cardiac: Regular Rhythm and S1/S2
GI: Soft, Nontender, Nondistended and Normal Bowel Sounds
Skin: Warm and Dry
Neuro: Awake, Alert, Oriented, AO x 3, No Sensory Deficits, DTR's Intact & Symmetrica and Other (Right hemianopia)
Psych: Calm
[2024-07-02 11:52] VITALS: BP 146/70
--- NOTE | 2024-07-02 14:36 | CM ---
MEt patient and son in room.Patient off all restraints. Ordering her lunch. She and son agreed to send referral update to [facility] and also to send to [facility]. referrals send in [facility].
[2024-07-02 15:00] VITALS: BP 140/72
[2024-07-02] MEDS: LIPITOR 40 MG PO (17:43)
[2024-07-02 23:00] VITALS: BP 136/73
[2024-07-03] MEDS: SYNTHROID 112 MCG PO (04:49)
[2024-07-03 07:00] VITALS: BP 168/79
[2024-07-03 07:40] LABS: Hematocrit 40.6 % (37.0-47.0); Hemoglobin 14.1 g/dL (12.0-16.0); Mean Corp Hgb Conc. 34.7 g/dL (33.0-37.0); Mean Corpuscular Volume 86.4 fL (81.0-99.0); Platelet Count 269 10^3/uL (130-400); Red Cell Dist. Width 13.2 % (11.5-14.5); White Blood Cell Count 9.7 10^3/uL (4.8-10.8)
[2024-07-03 07:57] LABS: Carbon Dioxide 30 mmol/L (22-30)
[2024-07-03 08:07] LABS: ALT (SGPT) 16 U/L (0-35); AST (SGOT) 24 U/L (14-36); Albumin 3.8 g/dl (3.5-5.0); Alkaline Phosphatase 53 U/L (38-126); Blood Urea Nitrogen 35 mg/dl (7-17); Calcium 9.6 mg/dl (8.4-10.2); Chloride 97 mmol/L (98-107); Estimated Creatinine Clearance 33 ml/min; Glucose 120 mg/dl (70-99); Potassium 3.7 mmol/L (3.5-5.1); Sodium 135 mmol/L (135-145); Total Bilirubin 0.7 mg/dl (0.2-1.3); Total Protein 5.9 g/dl (6.3-8.2); eGFR 43.27
--- NOTE | 2024-07-03 08:27 | W.PN.HOSP.TC ---
Addendum entered and electronically signed by Taisha Elizondo MD 07/03/24 20:46:
I saw and evaluated the patient independently. I reviewed the resident�s note and agree with findings and plan as documented by Dr. Castillo.
GENERAL: well developed, well nourished, female in no apparent distress
HEENT: NC/AT
HEART: regular rate and rhythm, +S1, +S2
LUNGS : clear to auscultation bilaterally
ABDOM: soft, nontender, nondistended, + bowel sounds
EXT: no cyanosis, clubbing, or edema
NEUROLOGIC: expressive aphasia, 'blind spot as could not see her daughter who was to her right', strength 5/5 all extremities
acute to subacute CVA presented as Visual defect/aphasia--Right homonymous hemianopia, expressive aphasia--MRI consistent with acute to subacute stroke--head CT in ED neg and head and neck CTA neg--apprec neuro-- asa/plavix x 21 days, outpt holter
monitor-- ECHO essentially WNL, EF 60-65%--therapy recommending acute rehab, await PM&R-- EEG neg--B12 WNL, urine tox screen neg--strong family history with daughter, sons with CVAs--consider hypercoagulable workup as outpt
delirium?/sundowning?--early dementia?--was in 4 point restraints--? sleep deprivation--off restraints and improved -- suspect more cognitive issues are there than first thought
Hypothyroidism--TFT�elevated TSH at 7.75--Patient was prescribed 112 mcg levothyroxine, but she stopped taking it--restart
Leukocytosis--unclear cause--stress reaction?--no signs of infection
History of melena?--son relates black diarrhea that appeared to have blood in it--HGB stable--outpt workup
Essential Hypertension--Continue bisoprolol/hydrochlorothiazide
DM II--Accucheck AC & HS--SSI-- HGB A1C 5.9
DVT proph
code status--FULL
Original Note:
Today's Communication/Plan
-
Awaiting acute rehab consult
Miralax for constipation
Assessment / Plan
Assessment / Plan
89-year-old female with past medical history of hypothyroidism, essential hypertension, migraine, breast cancer presented to the ER reporting headache, speech issues and vision changes. She is not able to see on the right side of her visual field.
This has been ongoing for a month but has worsened in the past week. Patient's son reported that he noticed some speech defect. Also patient had bowel incontinence 2 days ago and son reported that she passed dark stools. There was a history of
TIA 7 years ago, but she was not started on any medications. Only medication she takes at home is bisoprolol/hydrochlorothiazide.
Impression/plan
Awaiting acute rehab consult.
Visual defect/aphasia
Right homonymous hemianopia, expressive aphasia
CT head�no evidence of acute intracranial abnormality
CT angiogram head/neck� There is no evidence for significant narrowing of the carotid bulbs or proximal internal carotid arteries bilaterally.Dominant right vertebral artery with small caliber left vertebral artery.
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
Started on aspirin 81 mg, clopidogrel 75 mg X21 days
OP Holter monitoring and cardiology follow up as per neurology
Echo- No regional wall motion abnormalities are seen. LV ejection fraction is 60-65% . Normal diastolic function.
Normal right ventricular size and function.
No significant valvular pathology. No thrombus/intracardiac mass.
Neurology following
Family history of CVAs�recommend hypercoagulable workup as outpatient
B12�609, urine toxicology negative
EEG - intermittent left occipital slowing indicative of focal cerebral dysfunction. There is no evidence of focal slowing or epileptiform activity.
PT/OT recommended acute rehab
Delirium
Likely a component of dementia
No elevated white count, patient is afebrile
Monitor
Patient was placed in 4 point restraints, now off of restraints., Haldol ordered but never given.
Continue to reorient.
Elevated BUN and creatinine
Creatinine trended down to 1.2
Likely from dehydration
Will monitor BMP
Hypothyroidism
TFT�elevated TSH at 7.75
Patient was prescribed 112 mcg levothyroxine, but she stopped taking it.
Resume
History of melena
Hemoglobin stable
Monitor
Hypertension
Continue bisoprolol/hydrochlorothiazide
DM II
Accucheck AC & HS
SSI
A1C 5.9
Constipation
MiraLAX
DVT prophylaxis SCDs
Full code
Anticipated Discharge: 24 - 48 hours
Subjective/Interval History
-
Date of Service: July 03, 2024
Patient appears comfortable lying in her bed. No episodes of agitation/confusion overnight.
Objective Data
-
Labs:
Laboratory Results
07/03/24
06:37
WBC 9.7
Hgb 14.1
Hct 40.6
Plt Count 269
Sodium 135
Potassium 3.7
Chloride 97 L
Carbon Dioxide 30
BUN 35 H
Creatinine 1.2 H
Glucose 120 H
Calcium 9.6
Total Bilirubin 0.7
AST 24
ALT 16
Alkaline Phosphatase 53
Vital Signs:
Vital Signs
Temp Pulse Resp BP Pulse Ox
97.5 F 61 16 168/79 94
07/03/24 07:00 07/03/24 07:00 07/03/24 07:00 07/03/24 07:00 07/03/24 07:00
I&O
07/02/24 07/03/24 07/04/24
06:59 06:59 06:59
Intake Total 610 / 610 720 / 720
Balance 610 / 610 720 / 720
Review of Systems
-
All other systems: Reviewed and negative (as per history)
Physical Exam
-
General: No Apparent Distress
HEENT: Normocephalic and Atraumatic
Respiratory: Clear to Auscultation
Cardiac: Regular Rhythm and S1/S2
GI: Soft, Nontender, Nondistended and Normal Bowel Sounds
Neuro: Awake, Alert, Oriented, AO x 3, No Sensory Deficits and Other (Right hemianopia)
Psych: Calm
[2024-07-03] MEDS: ZEBETA 10 MG PO (09:11)
[2024-07-03] MEDS: ORETIC 6.25 MG PO (09:15)
[2024-07-03] MEDS: LOW STRENGTH ASPIRIN 81 MG PO (09:15)
[2024-07-03] MEDS: PLAVIX 75 MG PO (09:15)
--- NOTE | 2024-07-03 09:47 | CM ---
CM following re: d/c planning.
Recs for acute rehab, referrals had been sent to [facility].
At this time, awaiting PMR eval.
CM continuing to follow.
[2024-07-03] MEDS: MIRALAX 17 GRAMS PO (12:39)
[2024-07-03 15:00] VITALS: BP 134/66
[2024-07-03] MEDS: LIPITOR 40 MG PO (17:17)
--- NOTE | 2024-07-03 18:22 | PTCARENOTE ---
Pt AAOx3 and pleasant today. Family members at bedside at times throughout the day. NIH 2. pt still complaining of vision changes in L eye but has no deficits otherwise. Pt up into chair for lunch. Call li within reach, will continue to monitor.
[2024-07-03 22:10] VITALS: BP 167/64
[2024-07-04] MEDS: SYNTHROID 112 MCG PO (05:49)
[2024-07-04 07:00] VITALS: BP 130/78
[2024-07-04 07:24] LABS: Glucose - Point of Care 120 mg/dl (70-99)
[2024-07-04 07:29] LABS: Hematocrit 40.6 % (37.0-47.0); Hemoglobin 13.9 g/dL (12.0-16.0); Mean Corp Hgb Conc. 34.2 g/dL (33.0-37.0); Mean Corpuscular Hgb 29.5 pg (27.0-31.0); Mean Corpuscular Volume 86.2 fL (81.0-99.0); Mean Platelet Volume 10.7 fL (7.4-10.4); Platelet Count 272 10^3/uL (130-400); Red Blood Cell Count 4.71 10^6/uL (4.20-5.40); Red Cell Dist. Width 13.1 % (11.5-14.5); White Blood Cell Count 11.6 10^3/uL (4.8-10.8)
[2024-07-04 07:51] LABS: ALT (SGPT) 16 U/L (0-35); AST (SGOT) 25 U/L (14-36); Alkaline Phosphatase 50 U/L (38-126); Blood Urea Nitrogen 26 mg/dl (7-17); Calcium 9.2 mg/dl (8.4-10.2); Carbon Dioxide 30 mmol/L (22-30); Chloride 97 mmol/L (98-107); Estimated Creatinine Clearance 37 ml/min; Glucose 112 mg/dl (70-99); Potassium 4.2 mmol/L (3.5-5.1); Sodium 136 mmol/L (135-145); Total Bilirubin 0.6 mg/dl (0.2-1.3); Total Protein 6.5 g/dl (6.3-8.2); eGFR 48.03
[2024-07-04] MEDS: PLAVIX 75 MG PO (08:24)
[2024-07-04] MEDS: LOW STRENGTH ASPIRIN 81 MG PO (08:24)
[2024-07-04] MEDS: ZEBETA 10 MG PO (08:24)
[2024-07-04] MEDS: ORETIC 6.25 MG PO (08:24)
--- NOTE | 2024-07-04 08:45 | CON.MD ---
Documented by User: Kathryn Whitmore PA-C 07/04/24 17:54
Consultation - Medical
-
Referring Provider:�Johnathon Ryder
Chief Complaint:�CVA
�
History of Present Illness:�Patient is a 89-year-old female with PMH of (hypothyroidism, hypertension, hyperlipidemia, GERD, arthritis, DM II, and hx left breast cancer) who presented to [place] ED for evaluation of headache and change in eye
sight.It is reported that patient has been seeing 'squiggly' in her right visual field that is yellow/orange in color, in bilateral eyes, left eye being worse than right. Patient reports similar experience with migraines in the past, but states
never have lasted this long before. Patient also reports episode of bowel incontinence in bed 2 days ago (which is not typical for her) and claims stool was darker than normal. Patient claims she has had these symptoms for months with them getting
progressively worse over the past month and significantly increased in last 48 hours. Patient had episode of abdominal pain with diarrhea for one day on Thursday.
per chart notes- The patient's reportedly has had gradual decline in her cognitive function over the past several weeks. She has been exhibiting confusion, incorrectly identifying people and their relationships, and using wrong names. She has
abandoned her computer-based checkbook system and is no longer able to manage her finances independently. The patient voluntarily reduced her driving about 4 months ago due to declining memory.
During the course of her hospitalization was diagnosed with: Acute to subacute stroke--head CT in ED neg and head and neck CTA neg. Neurology recommended aspirin and Plavix x 21 days, outpatient Holter monitor. ECHO essentially WNL, EF 60-65%-- EEG
neg--B12 WNL, urine tox screen neg. Strong family history with daughter, sons with CVAs--consider hypercoagulable workup as outpt
06/30-code purple called twice. First accidents patient was trying to get out of bed to go home. With the help of security she was restrained. Later on patient was able to manage to get out of restraints and walked to another patient's room. IV
Haldol 0.5 mg was ordered and advised to give the patient gets to be agitated again
Brain MRI�acute left MAT MAKER infarct.
Routine EEG�intermittent left occipital slowing.
TTE-Interatrial septum is intact with no evidence of shunting by color flow Doppler. No intracardiac mass or thrombus formation seen.
Past Medical History:�HTN, DLP, hypothyroidism, Vitamin D deficiency, GERD, CHRIS, migraine with aura, h/o breast cancer
Procedure History:�left lumpectomy, bilateral tubal ligation, hernia repair umbilical, bilateral knee replacement, Mastectomy
Family History:�Daughter and son, CVA
Social History:�
Functional Level Premorbidly:�Independent with all activities, does most of the cooking and her son most of the laundry. Has a cane and rolling walker.
Functional Level Currently:Bed mobility�supervision, �ambulates 60 feet with no device x 2 with min assist requiring cues for scanning to right, transfer-min assist, ADLs�min assist,
�
Tobacco:�Denies�
Alcohol:�drinks a glass of wine 3 times a week�
Drug use:�Denies�
�
Lives with:�lives with her son
24-hour assistance available:�
Number of floors:�multi level
# steps to enter:�0
# steps to second floor:
Potential First floor set up: yes �
Driving:�reduced driving
Occupation:�worked part-time at a [employer] for 2 months each year;
�
�
Allergies:�
Allergy/AdvReac Type Severity Reaction Status Date / Time
oxycodone Allergy hallucinations, Verified 06/30/24 20:08
disorientation,
nausea
propoxyphene napsylate Allergy Nausea Verified 06/28/24 13:05
[From Gayt-N 100]
�
Review of Systems:�
Constitutional: (x) Normal _
Eye: (x) abNormal _right hemianopia
Ear/Nose/Throat: (x) Normal _
Respiratory: (x) Normal _
Cardiovascular: (x) Normal _
Gastrointestinal: (x) Normal _
Genitourinary: (x) Normal _
Musculoskeletal: (x) Normal _
Integumentary: (x) Normal _
Neurologic: (x) abNormal _cva, expressive aphasia
Psychiatric: (x) abNormal _delirium, sundowning? improved
Endocrine: (x) Normal _
Hematologic/Lymphatic: (x) Normal _
Allergic/Immunologic: (x) Normal _
�
Medications:�
Active Current Visit Medication List
Category Date Time Status
Aspirin Chewable [Low Strength Aspirin] Med 06/29/24 15:00 Active
81 mg PO DAILY
Atorvastatin [Lipitor] Med 06/30/24 18:00 Active
40 mg PO QPM
Bisoprolol Fumarate [Zebeta] Med 06/29/24 08:00 Active
10 mg PO DAILY
Clopidogrel Bisulfate [Plavix] Med 06/29/24 15:00 Active
75 mg PO DAILY
Flush (0.9% Sodium Chloride) [Flush (Nss)] Med 06/28/24 23:00 Active
See Dose Instructions IV PER PROTOCOL
HydrALAZINE [Apresoline] Med 06/29/24 03:26 Active
5 mg IV Q4HPRN PRN
Hydrochlorothiazide [Oretic] Med 06/29/24 08:00 Active
6.25 mg PO DAILY
Levothyroxine [Synthroid] Med 06/30/24 08:00 Active
112 mcg PO DAILY @ 0600
Polyethylene Glycol Powder [Miralax] Med 07/03/24 12:03 Active
17 grams PO DAILYPRN PRN
�
Vitals:�
Temp Pulse Resp BP Pulse Ox
97.9 F 66 17 130/78 96
07/04/24 07:00 07/04/24 08:24 07/04/24 07:00 07/04/24 08:24 07/04/24 07:00
Height 5 ft 5 in
Actual Weight 81.335 kg
Body Mass Index (BMI) 29.8
�
Physical Exam:�
General Appearance/Observation: Well-developed, well-nourished individual in no apparent distress.�
Pain/Comfort Assessment: Denies�
Mood/Affect: Appropriate�
�
Integumentary/Operative Site:�
�� Pressure Ulcer Evaluation: absent over heels.�
��
�� Other Type of Wound: absent�
��
�
Eyes: Conjunctiva/Lids: normal���� Pupils: pupils equal round and reactive to light and Accommodation�
Ears/Nose/Throat: oral mucosa moist,� throat clear.������������ Lips/Teeth/Gums: normal�
Neck: No muscle spasm or tenderness�
Cardiovascular: Heart: regular, no murmur�
Pulses: dorsalis pedis 2+ bilaterally�
Respiratory: Respiratory Effort/Chest Expansion: normal������� Auscultation: Clear to auscultation bilaterally�
Gastrointestinal: abdomen not tender, no distension, normal abdominal bowel sounds
Genitourinary: No Guan�
Extremities:�Edema: None�Cyanosis: None�Trophic�changes: None
�
Neurology Exam:
Orientation: Alert, Oriented to self, Time- month, year after 2nd try, Place�-
Memory: impaired, forgetful. Did not know why she was in the hospital or what her diagnosis is
Comprehension: slow processing
Two step command: Intact
Naming: Intact
Cranial Nerves:
�� CNII:�Pupillary light reflex: Intact����Visual Field:Right hemianopsia. sees better straight forward, No ptosis. No nystagmus
�� CN III, IV, : Extraocular muscles: Intact�
�� CN V:�Facial Sensation�at�Forehead: Intact,�Maxilla: Intact,�Mandible: Intact
�� CN VII:�Facial movement: Symmetric
�� CN VIII:�Hearing: Normal
�� CN IX/X:�Speech & swallow: Normal,�Position of Uvula: Midline
�� CN XI:�Shoulder shrug: Symmetric
�� CN XII:�Tongue protrusion: Midline
Sensory:
�� Light touch: Intact in bilateral upper and lower extremities
��
�
Reflexes:
�� Biceps: 1+ bilaterally
�� Brachioradialis: 1+ bilaterally
�� Triceps: 1+ bilaterally
�� Patellar: 1/4 bilaterally
�� Achilles absent bilaterally
�� Babinski: Down going bilaterally
�� Clonus: None
�� Shadia: Negative bilaterally�
Cerebellar: Dysmetria/Ataxia: None�
Musculoskeletal:
Motor: (Manual muscle scale 0-5)�
Muscle SA EF WE EE FF FA HF KE DF EHL PF
Right� 5 5 5 5 5 5 5 5 5 5 5
Left 5 5 5 5 5 5 5 5 5 5 5
�
Tone: Normal in all extremities�
Range of Motion: Passively within normal limits in all extremities�
�
Lab Results
Labs
WBC 11.6 10^3/uL (4.8-10.8) H 07/04/24 06:53
RBC 4.71 10^6/uL (4.20-5.40) 07/04/24 06:53
Hgb 13.9 g/dL (12.0-16.0) 07/04/24 06:53
Hct 40.6 % (37.0-47.0) 07/04/24 06:53
MCV 86.2 fL (81.0-99.0) 07/04/24 06:53
MCH 29.5 pg (27.0-31.0) 07/04/24 06:53
MCHC 34.2 g/dL (33.0-37.0) 07/04/24 06:53
RDW 13.1 % (11.5-14.5) 07/04/24 06:53
Plt Count 272 10^3/uL (130-400) 07/04/24 06:53
MPV 10.7 fL (7.4-10.4) H 07/04/24 06:53
Abs Immat Gran (auto) 0.1 10^3/uL (0-0.05) H 07/02/24 06:23
Absolute Neuts (auto) 7.9 10^3/uL (1.4-6.5) H 07/02/24 06:23
Absolute Lymphs (auto) 2.6 10^3/uL (1.2-3.4) 07/02/24 06:23
Absolute Monos (auto) 1.0 10^3/uL (0.1-0.6) H 07/02/24 06:23
Absolute Eos (auto) 0.4 10^3/uL (0-0.7) 07/02/24 06:23
Absolute Basos (auto) 0.1 10^3/uL (0-0.2) 07/02/24 06:23
Immature Gran % 1.0 % (0-0.5) H 07/02/24 06:23
Neutrophils % 64.6 % (42.2-75.2) 07/02/24 06:23
Lymphocytes % 21.5 % (20.5-51.1) 07/02/24 06:23
Monocytes % 8.2 % (1.7-9.3) 07/02/24 06:23
Eosinophils % 3.6 % (0-6) 07/02/24 06:23
Basophils % 1.1 % (0-2) 07/02/24 06:23
Nucleated RBC % 0 % 07/02/24 06:23
ESR 7 mm/hour (0-20) 06/28/24 13:16
PT 14.5 Sec (11.4-14.6) 06/29/24 06:26
INR 1.10 06/29/24 06:26
APTT 33.3 Sec (23.4-35.0) 06/29/24 06:26
Sodium 136 mmol/L (135-145) 07/04/24 06:53
Potassium 4.2 mmol/L (3.5-5.1) 07/04/24 06:53
Chloride 97 mmol/L (98-107) L 07/04/24 06:53
Carbon Dioxide 30 mmol/L (22-30) 07/04/24 06:53
BUN 26 mg/dl (7-17) H 07/04/24 06:53
Creatinine 1.1 mg/dL (0.6-1.0) H 07/04/24 06:53
Estimated Creat Clear 37 ml/min 07/04/24 06:53
eGFR 48.03 07/04/24 06:53
Glucose 112 mg/dl (70-99) H 07/04/24 06:53
Hemoglobin A1c 5.9 % (4.0-5.6) H 06/29/24 06:26
Lactic Acid Cancelled 06/28/24 22:30
Calcium 9.2 mg/dl (8.4-10.2) 07/04/24 06:53
Total Bilirubin 0.6 mg/dl (0.2-1.3) 07/04/24 06:53
AST 25 U/L (14-36) 07/04/24 06:53
ALT 16 U/L (0-35) 07/04/24 06:53
Alkaline Phosphatase 50 U/L (38-126) 07/04/24 06:53
Troponin I 0.018 ng/ml 06/29/24 06:26
C-Reactive Protein 69.80 mg/L (0.0-10.00) H 06/28/24 13:16
Total Protein 6.5 g/dl (6.3-8.2) 07/04/24 06:53
Albumin 4.0 g/dl (3.5-5.0) 07/04/24 06:53
Triglycerides 111 mg/dl (10-149) 06/30/24 11:48
Total Cholesterol 219 mg/dl (50-199) H 06/30/24 11:48
LDL Cholesterol, Calc 137 mg/dl 06/30/24 11:48
VLDL Cholesterol, Calc 22 mg/dl (0-30) 06/30/24 11:48
HDL Cholesterol 60 mg/dl 06/30/24 11:48
Vitamin B12 609 pg/ml (239-931) 06/29/24 06:26
TSH (Reflex) 7.75 uIU/ml (0.47-4.68) H 06/29/24 06:26
Free T4 1.09 ng/dl (0.78-2.19) 06/29/24 06:26
Urine Color Yellow 07/01/24 09:56
Urine Clarity Slightly cloudy (Clear) 07/01/24 09:56
Urine pH 6.0 (5.0-9.0) 07/01/24 09:56
Ur Specific [place] 1.020 (<1.030) 07/01/24 09:56
Urine Ketones 1+ (Negative) A 07/01/24 09:56
Ur Occult Blood Reflex 1+ (Negative) A 07/01/24 09:56
Urine Nitrite (Reflex) Negative (Negative) 07/01/24 09:56
Urine Bilirubin Negative (Negative) 07/01/24 09:56
Urine Urobilinogen Negative (Neg - 1+) 07/01/24 09:56
Leukocyte Esterase Rfl Negative (Negative) 07/01/24 09:56
Urine RBC 3-6 /HPF (0-2) A 07/01/24 09:56
Urine WBC (Reflex) 0-2 /HPF (0-5) 07/01/24 09:56
Ur Squamous Epith Cells 16-20 /LPF (Few) 07/01/24 09:56
Ur Urothelial Cells 3-5 /LPF (FEW) 07/01/24 09:56
Amorphous Crystals Seen 07/01/24 09:56
Urine Bacteria (Reflex) Few (Negative) A 07/01/24 09:56
Urine Mucus Few 07/01/24 09:56
Urine Glucose Negative (Negative) 07/01/24 09:56
Urine Albumin (Reflex) Negative (Neg - Trace) 07/01/24 09:56
Urine Opiates Screen Cancelled 06/29/24 04:14
Ur Buprenorphine Cancelled 06/29/24 04:14
Ur Oxycodone Screen Cancelled 06/29/24 04:14
Urine Methadone Screen Cancelled 06/29/24 04:14
Ur Barbiturates Screen Cancelled 06/29/24 04:14
Ur Tricyclics Screen Cancelled 06/29/24 04:14
Ur Phencyclidine Scrn Cancelled 06/29/24 04:14
Ur Amphetamines Screen Cancelled 06/29/24 04:14
U Methamphetamines Scrn Cancelled 06/29/24 04:14
U Benzodiazepines Scrn Cancelled 06/29/24 04:14
Urine Cocaine Screen Cancelled 06/29/24 04:14
U Marijuana (THC) Screen Cancelled 06/29/24 04:14
SARS-CoV-2 Antigen Negative (Negative) 06/28/24 18:42
POC Glucose 120 mg/dl (70-99) H 07/04/24 07:21
Blood Type A POS 06/28/24 23:25
Antibody Screen Negative (Negative) 06/28/24 23:25
�
Diagnostic Results:�as per HPI�
�Routine EEG�intermittent left occipital slowing.
TTE-Interatrial septum is intact with no evidence of shunting by color flow Doppler. No intracardiac mass or thrombus formation seen.
Assessment: 89-year-old female with PMH of hypothyroidism, hypertension, hyperlipidemia, GERD, arthritis, DM II, and hx left breast cancer with right visual field abnormalities found to have acute to subacute stroke in the medial left occipital
lobe measuring 4.4 cm in length
�
Plan�
PM&R�PT/OT to increase independence with ADLs, improve balance, coordination, endurance, strength, mobility, community reintegration, decreased burden of care on others and family education.�
�
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 Likely etiology�embolic. (aspirin 81mg and Plavix for 21 days () followed by aspirin lifelong, statin, and blood pressure control (SBP less than 180 and diastolic less than
100 to participate with therapy for ischemic stroke). Continue to monitor neurologic status.�
right homonymous hemianopia: High risk for falls and sliding out of chair/bed. Safety reinforced.�
Expressive aphasia: speech evaluation�
Cognitive deficits: Speech evaluation.
Delirium/Multifactorial encephalopathy (vascular, inflammatory?): code purple x 2. was in 4 point restraints. Received 1 dose of IV Haldol. Has been cooperative since
HTN: Bisoprolol fumarate 10 mg daily, hydrochlorothiazide 6.25 daily, hydralazine 5 mg IV every 4 as needed
HLD: Lipitor 40 mg nightly
DM II: HgbA1c 5.9. Patient states that she is not diabetic. And is not on any medication for it.
Hypothyroidism: TFT�elevated TSH at 7.75--Patient was prescribed 112 mcg levothyroxine, but she stopped taking it--restarted
Anemia: Likely multifactorial.� Continue to monitor.�
Leukocytosis: stress reaction?--no signs of infection
Psych: Psychology consult.� Monitor mood, adjust medications as needed.�
Skin: monitor for pressure sores/rashes/lesions.�
Pain: acetaminophen as needed.�
Bowel: Colace and Senna, PRN bisacodyl.� MiraLAX as needed
Bladder: Time void, PVRs, PRN straight cath.�
GI Prophylaxis: Pantoprazole�
DVT Prophylaxis: Mechanical. Recommend adding Lovenox sc while in hospital and/or rehabilitation
Pulmonary: Incentive spirometry�
Safety: Continue to reinforce assistance with all transfers.�
Code Status:� Full code
Dispo�(date/plan/equipment needs): Home with family care.� Social history reviewed.�
�
Functional and Medical Goals:�Modified Independent with ADL�s, ambulation, transfers�
�
Discharge Destination:�Acute inpatient rehabilitation
�
Summary of recommendations: Patient with left occipital stroke associated with right hemianopsia and cognitive deficits would benefit from acute inpatient rehab for PT/OT to increase independence with ADLs, improve balance, coordination, endurance,
strength, mobility, community reintegration, decreased burden of care on others and family education.�
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 Likely etiology�embolic. (aspirin 81mg and Plavix for 21 days () followed by aspirin lifelong, statin, and blood pressure control (SBP less than 180 and diastolic less than
100 to participate with therapy for ischemic stroke). Continue to monitor neurologic status.�
right homonymous hemianopia: High risk for falls and sliding out of chair/bed. Safety reinforced.�
Expressive aphasia: speech evaluation�
HTN: Bisoprolol fumarate 10 mg daily, hydrochlorothiazide 6.25 daily, hydralazine 5 mg IV every 4 as needed- BP to be controlled on po medications
DVT Prophylaxis: Mechanical. Recommend adding Lovenox sc while in hospital and/or rehabilitation
Pulmonary: Incentive spirometry�
Thank you for allowing me to care for your patient. Please contact me with any questions or concerns.

Documented by User: Sergio Tellez MD 07/04/24 18:45
Consultation - Medical
-
Referring Provider:�Johnathon Ryder
Chief Complaint:�CVA
�
History of Present Illness:�Patient is a 89-year-old right-handed female with PMH of (hypothyroidism, hypertension, hyperlipidemia, GERD, arthritis, DM II, and hx left breast cancer) who presented to [place] ED for evaluation of headache and
change in eye sight.It is reported that patient has been seeing 'squiggly' in her right visual field that is yellow/orange in color, in bilateral eyes, left eye being worse than right. Patient reports similar experience with migraines in the past,
but states never have lasted this long before. Patient also reports episode of bowel incontinence in bed 2 days ago (which is not typical for her) and claims stool was darker than normal. Patient claims she has had these symptoms for months with
them getting progressively worse over the past month and significantly increased in last 48 hours. Patient had episode of abdominal pain with diarrhea for one day on Thursday.
per chart notes- The patient's reportedly has had gradual decline in her cognitive function over the past several weeks. She has been exhibiting confusion, incorrectly identifying people and their relationships, and using wrong names. She has
abandoned her computer-based checkbook system and is no longer able to manage her finances independently. The patient voluntarily reduced her driving about 4 months ago due to declining memory.
During the course of her hospitalization was diagnosed with: Acute to subacute stroke--head CT in ED neg and head and neck CTA neg. Neurology recommended aspirin and Plavix x 21 days, outpatient Holter monitor. ECHO essentially WNL, EF 60-65%-- EEG
neg--B12 WNL, urine tox screen neg. Strong family history with daughter, sons with CVAs--consider hypercoagulable workup as outpt
06/30-code purple called twice. First accidents patient was trying to get out of bed to go home. With the help of security she was restrained. Later on patient was able to manage to get out of restraints and walked to another patient's room. IV
Haldol 0.5 mg was ordered and advised to give the patient gets to be agitated again
Brain MRI�acute left MAT MAKER infarct.
Routine EEG�intermittent left occipital slowing.
TTE-Interatrial septum is intact with no evidence of shunting by color flow Doppler. No intracardiac mass or thrombus formation seen.
Past Medical History:�HTN, DLP, hypothyroidism, Vitamin D deficiency, GERD, CHRIS, migraine with aura, h/o breast cancer
Procedure History:�left lumpectomy, bilateral tubal ligation, hernia repair umbilical, bilateral knee replacement, Mastectomy
Family History:�Daughter and son, CVA
Social History:�
Functional Level Premorbidly:�Independent with all activities, does most of the cooking and her son most of the laundry. Has a cane and rolling walker.
Functional Level Currently:Bed mobility�supervision, �ambulates 60 feet with no device x 2 with min assist requiring cues for scanning to right, transfer-min assist, ADLs�min assist,
�
Tobacco:�Denies�
Alcohol:�drinks a glass of wine 3 times a week�
Drug use:�Denies�
�
Lives with:�lives with her son
24-hour assistance available:�Yes son
Number of floors:�multi level
# steps to enter:�0
# steps to second floor: Full flight
Potential First floor set up: yes �
Driving:�reduced driving
Occupation:�worked part-time at a [employer] for 2 months each year;
�
�
Allergies:�
Allergy/AdvReac Type Severity Reaction Status Date / Time
oxycodone Allergy hallucinations, Verified 06/30/24 20:08
disorientation,
nausea
propoxyphene napsylate Allergy Nausea Verified 06/28/24 13:05
[From Darvocet-N 100]
�
Review of Systems:�
Constitutional: (x) abNormal _fatigue
Eye: (x) Normal _vision being off
Ear/Nose/Throat: (x) Normal _
Respiratory: (x) Normal _
Cardiovascular: (x) Normal _
Gastrointestinal: (x) Normal _
Genitourinary: (x) Normal _
Musculoskeletal: (x) Normal _
Integumentary: (x) Normal _
Neurologic: (x) abNormal _cva, expressive aphasia
Psychiatric: (x) abNormal _delirium, sundowning? improved
Endocrine: (x) Normal _
Hematologic/Lymphatic: (x) Normal _
Allergic/Immunologic: (x) Normal _
�
Medications:�
Active Current Visit Medication List
Category Date Time Status
Aspirin Chewable [Low Strength Aspirin] Med 06/29/24 15:00 Active
81 mg PO DAILY
Atorvastatin [Lipitor] Med 06/30/24 18:00 Active
40 mg PO QPM
Bisoprolol Fumarate [Zebeta] Med 06/29/24 08:00 Active
10 mg PO DAILY
Clopidogrel Bisulfate [Plavix] Med 06/29/24 15:00 Active
75 mg PO DAILY
Flush (0.9% Sodium Chloride) [Flush (Nss)] Med 06/28/24 23:00 Active
See Dose Instructions IV PER PROTOCOL
HydrALAZINE [Apresoline] Med 06/29/24 03:26 Active
5 mg IV Q4HPRN PRN
Hydrochlorothiazide [Oretic] Med 06/29/24 08:00 Active
6.25 mg PO DAILY
Levothyroxine [Synthroid] Med 06/30/24 08:00 Active
112 mcg PO DAILY @ 0600
Polyethylene Glycol Powder [Miralax] Med 07/03/24 12:03 Active
17 grams PO DAILYPRN PRN
�
Vitals:�
Temp Pulse Resp BP Pulse Ox
97.9 F 66 17 130/78 96
07/04/24 07:00 07/04/24 08:24 07/04/24 07:00 07/04/24 08:24 07/04/24 07:00
Height 5 ft 5 in
Actual Weight 81.335 kg
Body Mass Index (BMI) 29.8
�
Physical Exam:�
General Appearance/Observation: Well-developed, well-nourished individual in no apparent distress.�
Pain/Comfort Assessment: Denies�
Mood/Affect: Appropriate�
�
Integumentary/Operative Site:�
�� Pressure Ulcer Evaluation: absent over heels.��
�
Eyes: Conjunctiva/Lids: normal���� Pupils: pupils equal round and reactive to light and Accommodation�
Ears/Nose/Throat: oral mucosa moist,� throat clear.������������ Lips/Teeth/Gums: normal�
Cardiovascular: Heart: regular, no murmur�
Pulses: dorsalis pedis 2+ bilaterally�
Respiratory: Respiratory Effort/Chest Expansion: normal������� Auscultation: Clear to auscultation bilaterally�
Gastrointestinal: abdomen not tender, no distension, normal abdominal bowel sounds
Genitourinary: No Guan�
Extremities:�Edema: None�Cyanosis: None�Trophic�changes: None
�
Neurology Exam:
Orientation: Alert, Oriented to self, Time- month, year after 2nd try, Place�-
Memory: impaired, forgetful. Did not know why she was in the hospital or what her diagnosis is
Comprehension: slow processing
Two step command: Intact
Naming: Intact
Cranial Nerves:
�� CNII:�Pupillary light reflex: Intact����Visual Field: No hemianopsia when confronted with fingers in both visual tapia.
�� CN III, IV, : Extraocular muscles: Intact�
�� CN V:�Facial Sensation�at�Forehead: Intact,�Maxilla: Intact,�Mandible: Intact
�� CN VII:�Facial movement: Symmetric
�� CN VIII:�Hearing: Normal
�� CN IX/X:�Speech & swallow: Normal,�Position of Uvula: Midline
�� CN XI:�Shoulder shrug: Symmetric
�� CN XII:�Tongue protrusion: Midline
Sensory:
�� Light touch: Intact in bilateral upper and lower extremities
��
�
Reflexes:
�� Biceps: 2+ bilaterally
�� Brachioradialis: 2+ bilaterally
�� Triceps: 2+ bilaterally
�� Patellar: 2+ bilaterally
�� Achilles absent bilaterally
�� Babinski: Down going bilaterally
�� Clonus: None
�� Shadia: Negative bilaterally�
Cerebellar: Dysmetria/Ataxia: None�
Musculoskeletal: Motor: (Manual muscle scale 0-5)�
Muscle SA EF WE EE FF FA HF KE DF EHL PF
Right� 5 5 5 5 5 5 5 5 5 5 5
Left 5 5 5 5 5 5 5 5 5 5 5
�
Tone: Normal in all extremities�
Range of Motion: Passively within normal limits in all extremities�
�
Lab Results
Labs
WBC 11.6 10^3/uL (4.8-10.8) H 07/04/24 06:53
RBC 4.71 10^6/uL (4.20-5.40) 07/04/24 06:53
Hgb 13.9 g/dL (12.0-16.0) 07/04/24 06:53
Hct 40.6 % (37.0-47.0) 07/04/24 06:53
MCV 86.2 fL (81.0-99.0) 07/04/24 06:53
MCH 29.5 pg (27.0-31.0) 07/04/24 06:53
MCHC 34.2 g/dL (33.0-37.0) 07/04/24 06:53
RDW 13.1 % (11.5-14.5) 07/04/24 06:53
Plt Count 272 10^3/uL (130-400) 07/04/24 06:53
MPV 10.7 fL (7.4-10.4) H 07/04/24 06:53
Abs Immat Gran (auto) 0.1 10^3/uL (0-0.05) H 07/02/24 06:23
Absolute Neuts (auto) 7.9 10^3/uL (1.4-6.5) H 07/02/24 06:23
Absolute Lymphs (auto) 2.6 10^3/uL (1.2-3.4) 07/02/24 06:23
Absolute Monos (auto) 1.0 10^3/uL (0.1-0.6) H 07/02/24 06:23
Absolute Eos (auto) 0.4 10^3/uL (0-0.7) 07/02/24 06:23
Absolute Basos (auto) 0.1 10^3/uL (0-0.2) 07/02/24 06:23
Immature Gran % 1.0 % (0-0.5) H 07/02/24 06:23
Neutrophils % 64.6 % (42.2-75.2) 07/02/24 06:23
Lymphocytes % 21.5 % (20.5-51.1) 07/02/24 06:23
Monocytes % 8.2 % (1.7-9.3) 07/02/24 06:23
Eosinophils % 3.6 % (0-6) 07/02/24 06:23
Basophils % 1.1 % (0-2) 07/02/24 06:23
Nucleated RBC % 0 % 07/02/24 06:23
ESR 7 mm/hour (0-20) 06/28/24 13:16
PT 14.5 Sec (11.4-14.6) 06/29/24 06:26
INR 1.10 06/29/24 06:26
APTT 33.3 Sec (23.4-35.0) 06/29/24 06:26
Sodium 136 mmol/L (135-145) 07/04/24 06:53
Potassium 4.2 mmol/L (3.5-5.1) 07/04/24 06:53
Chloride 97 mmol/L (98-107) L 07/04/24 06:53
Carbon Dioxide 30 mmol/L (22-30) 07/04/24 06:53
BUN 26 mg/dl (7-17) H 07/04/24 06:53
Creatinine 1.1 mg/dL (0.6-1.0) H 07/04/24 06:53
Estimated Creat Clear 37 ml/min 07/04/24 06:53
eGFR 48.03 07/04/24 06:53
Glucose 112 mg/dl (70-99) H 07/04/24 06:53
Hemoglobin A1c 5.9 % (4.0-5.6) H 06/29/24 06:26
Lactic Acid Cancelled 06/28/24 22:30
Calcium 9.2 mg/dl (8.4-10.2) 07/04/24 06:53
Total Bilirubin 0.6 mg/dl (0.2-1.3) 07/04/24 06:53
AST 25 U/L (14-36) 07/04/24 06:53
ALT 16 U/L (0-35) 07/04/24 06:53
Alkaline Phosphatase 50 U/L (38-126) 07/04/24 06:53
Troponin I 0.018 ng/ml 06/29/24 06:26
C-Reactive Protein 69.80 mg/L (0.0-10.00) H 06/28/24 13:16
Total Protein 6.5 g/dl (6.3-8.2) 07/04/24 06:53
Albumin 4.0 g/dl (3.5-5.0) 07/04/24 06:53
Triglycerides 111 mg/dl (10-149) 06/30/24 11:48
Total Cholesterol 219 mg/dl (50-199) H 06/30/24 11:48
LDL Cholesterol, Calc 137 mg/dl 06/30/24 11:48
VLDL Cholesterol, Calc 22 mg/dl (0-30) 06/30/24 11:48
HDL Cholesterol 60 mg/dl 06/30/24 11:48
Vitamin B12 609 pg/ml (239-931) 06/29/24 06:26
TSH (Reflex) 7.75 uIU/ml (0.47-4.68) H 06/29/24 06:26
Free T4 1.09 ng/dl (0.78-2.19) 06/29/24 06:26
Urine Color Yellow 07/01/24 09:56
Urine Clarity Slightly cloudy (Clear) 07/01/24 09:56
Urine pH 6.0 (5.0-9.0) 07/01/24 09:56
Ur Specific [place] 1.020 (<1.030) 07/01/24 09:56
Urine Ketones 1+ (Negative) A 07/01/24 09:56
Ur Occult Blood Reflex 1+ (Negative) A 07/01/24 09:56
Urine Nitrite (Reflex) Negative (Negative) 07/01/24 09:56
Urine Bilirubin Negative (Negative) 07/01/24 09:56
Urine Urobilinogen Negative (Neg - 1+) 07/01/24 09:56
Leukocyte Esterase Rfl Negative (Negative) 07/01/24 09:56
Urine RBC 3-6 /HPF (0-2) A 07/01/24 09:56
Urine WBC (Reflex) 0-2 /HPF (0-5) 07/01/24 09:56
Ur Squamous Epith Cells 16-20 /LPF (Few) 07/01/24 09:56
Ur Urothelial Cells 3-5 /LPF (FEW) 07/01/24 09:56
Amorphous Crystals Seen 07/01/24 09:56
Urine Bacteria (Reflex) Few (Negative) A 07/01/24 09:56
Urine Mucus Few 07/01/24 09:56
Urine Glucose Negative (Negative) 07/01/24 09:56
Urine Albumin (Reflex) Negative (Neg - Trace) 07/01/24 09:56
Urine Opiates Screen Cancelled 06/29/24 04:14
Ur Buprenorphine Cancelled 06/29/24 04:14
Ur Oxycodone Screen Cancelled 06/29/24 04:14
Urine Methadone Screen Cancelled 06/29/24 04:14
Ur Barbiturates Screen Cancelled 06/29/24 04:14
Ur Tricyclics Screen Cancelled 06/29/24 04:14
Ur Phencyclidine Scrn Cancelled 06/29/24 04:14
Ur Amphetamines Screen Cancelled 06/29/24 04:14
U Methamphetamines Scrn Cancelled 06/29/24 04:14
U Benzodiazepines Scrn Cancelled 06/29/24 04:14
Urine Cocaine Screen Cancelled 06/29/24 04:14
U Marijuana (THC) Screen Cancelled 06/29/24 04:14
SARS-CoV-2 Antigen Negative (Negative) 06/28/24 18:42
POC Glucose 120 mg/dl (70-99) H 07/04/24 07:21
Blood Type A POS 06/28/24 23:25
Antibody Screen Negative (Negative) 06/28/24 23:25
�
Diagnostic Results:�as per HPI�
-Routine EEG�intermittent left occipital slowing.
-TTE-Interatrial septum is intact with no evidence of shunting by color flow Doppler. No intracardiac mass or thrombus formation seen.
Assessment: 89-year-old female with PMH of hypothyroidism, hypertension, hyperlipidemia, GERD, arthritis, DM II, and hx left breast cancer with right visual field abnormalities found to have acute to subacute stroke in the medial left occipital
lobe measuring 4.4 cm in length with ambulatory, ADL, and speech dysfunction.
�
Plan�
PM&R�PT/OT to increase independence with ADLs, improve balance, coordination, endurance, strength, mobility, community reintegration, decreased burden of care on others and family education.�
�
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 Likely etiology�embolic. (aspirin 81mg and Plavix for 21 days () followed by aspirin lifelong, statin, and blood pressure control (SBP less than 180 and diastolic less than
100 to participate with therapy for ischemic stroke). Continue to monitor neurologic status.�
Visual disturbance: High risk for falls and sliding out of chair/bed. Safety reinforced.�
Expressive aphasia: speech�
Cognitive deficits: Speech/OT.
Delirium/Multifactorial encephalopathy (vascular, inflammatory?): code purple x 2. was in 4 point restraints. Received 1 dose of IV Haldol. Has been cooperative since
HTN: Bisoprolol fumarate 10 mg daily, hydrochlorothiazide 6.25 daily, hydralazine 5 mg IV every 4 as needed
HLD: Lipitor 40 mg nightly
DM II: HgbA1c 5.9. Patient states that she is not diabetic. And is not on any medication for it.
Hypothyroidism: TFT�elevated TSH at 7.75--Patient was prescribed 112 mcg levothyroxine, but she stopped taking it--restarted
Leukocytosis: stress reaction?--no signs of infection
Psych: Psychology consult.� Monitor mood, adjust medications as needed.�
Skin: monitor for pressure sores/rashes/lesions.�
Pain: acetaminophen as needed.�
Bowel: Colace and Senna, PRN bisacodyl.� MiraLAX as needed
Bladder: Time void, PVRs, PRN straight cath.�
GI Prophylaxis: Pantoprazole�
DVT Prophylaxis: Mechanical, suggest chemoprophylaxis such as Lovenox unless otherwise contraindicated
Pulmonary: Incentive spirometry�
Safety: Continue to reinforce assistance with all transfers.�
Code Status:� Full code
Dispo�(date/plan/equipment needs): Home with family care.� Social history reviewed.�
Functional and Medical Goals:�Modified Independent with ADL�s, ambulation, transfers�
Discharge Destination:�Acute inpatient rehabilitation
Summary of recommendations: Patient with left occipital stroke associated with right visual disturbance and cognitive deficits would benefit from acute inpatient rehab for PT/OT to increase independence with ADLs, improve balance, coordination,
endurance, strength, mobility, community reintegration, decreased burden of care on others and family education.�
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 Likely etiology�embolic. (aspirin 81mg and Plavix for 21 days () followed by aspirin lifelong, statin, and blood pressure control (SBP less than 180 and diastolic less than
100 to participate with therapy for ischemic stroke). Continue to monitor neurologic status.�
Visual disturbance: High risk for falls and sliding out of chair/bed. Safety reinforced.�
Expressive aphasia: speech �
HTN: Bisoprolol fumarate 10 mg daily, hydrochlorothiazide 6.25 daily, hydralazine 5 mg IV every 4 as needed- BP to be controlled on po medications
DVT Prophylaxis: Mechanical. Recommend adding Lovenox subcutaneous unless otherwise contraindicated
Pulmonary: Incentive spirometry�
Thank you for allowing me to care for your patient. Please contact me with any questions or concerns.
[2024-07-04 11:35] LABS: Glucose - Point of Care 145 mg/dl (70-99)
[2024-07-04 12:11] VITALS: BP 145/77; PULSE 63; O2SAT 95
--- NOTE | 2024-07-04 14:31 | CM ---
Spoke with resident to relay that patient needs PMNR consult. Spoke with Mayda in admissions at [facility] who asked for updated clinicals and stated that she may be able to take patient upon medical clearance pending behaviors and
PT/OT/ST updates.
Plan: Case management will continue to follow and assist with discharge planning. Hopeful transfer to [facility].
[2024-07-04 15:10] VITALS: BP 147/80
[2024-07-04 16:00] VITALS: BP 151/77; PULSE 64; O2SAT 96
--- NOTE | 2024-07-04 17:34 | W.PN.UPDATE ---
Update Note
Progress Note Update
Seen and examined by me independently in collaboration with the medical cost consultant.
Lab data and imaging data reviewed.
Addendum as below :
Patient still with the right visual field defect. Voices no new complaints. No headache. Alert and oriented. No confusion noted by family today.
Patient on medical treatment for her acute cerebral ischemic infarct which I would continue.
Await PM&R evaluation for acute rehab placement.
[2024-07-04] MEDS: LIPITOR 40 MG PO (17:48)
--- NOTE | 2024-07-04 19:36 | W.PN.HOSP.TC ---
Today's Communication/Plan
-
Physiatry consult appreciated
Continue aspirin and plavix
Assessment / Plan
Assessment / Plan
89-year-old female with past medical history of hypothyroidism, essential hypertension, migraine, breast cancer presented to the ER reporting headache, speech issues and vision changes. She is not able to see on the right side of her visual field.
This has been ongoing for a month but has worsened in the past week. Patient's son reported that he noticed some speech defect. Also patient had bowel incontinence 2 days ago and son reported that she passed dark stools. There was a history of
TIA 7 years ago, but she was not started on any medications. Only medication she takes at home is bisoprolol/hydrochlorothiazide.
Impression/plan
Awaiting acute rehab consult.
Visual defect/aphasia
Right homonymous hemianopia, expressive aphasia
CT head�no evidence of acute intracranial abnormality
CT angiogram head/neck� There is no evidence for significant narrowing of the carotid bulbs or proximal internal carotid arteries bilaterally.Dominant right vertebral artery with small caliber left vertebral artery.
MRI brain�acute to subacute infarct of the medial left occipital lobe and the left STAIN REMOVER distribution.
Started on aspirin 81 mg, clopidogrel 75 mg X21 days
OP Holter monitoring and cardiology follow up as per neurology
Echo- No regional wall motion abnormalities are seen. LV ejection fraction is 60-65% . Normal diastolic function.
Normal right ventricular size and function.
No significant valvular pathology. No thrombus/intracardiac mass.
Neurology following
Family history of CVAs�recommend hypercoagulable workup as outpatient
B12�609, urine toxicology negative
EEG - intermittent left occipital slowing indicative of focal cerebral dysfunction. There is no evidence of focal slowing or epileptiform activity.
PT/OT recommended acute rehab
Awaiting acute rehab consult.
No new complaints.
Delirium
Likely a component of dementia
No elevated white count, patient is afebrile
Monitor
Patient was placed in 4 point restraints, now off of restraints., Haldol ordered but never given.
Patient seems to be back to her baseline.
Oriented to place, person, time.
Leukocytosis
Unclear etiology
No source of infection
Continue to monitor
Elevated BUN and creatinine
Creatinine trended down to 1.1
Likely from dehydration
Will monitor BMP
Hypothyroidism
TFT�elevated TSH at 7.75
Patient was prescribed 112 mcg levothyroxine, but she stopped taking it.
Resume
History of melena
Hemoglobin stable
Monitor
Hypertension
Continue bisoprolol/hydrochlorothiazide
DM II
Accucheck AC & HS
SSI
A1C 5.9
Constipation
MiraLAX
DVT prophylaxis SCDs
Full code
Anticipated Discharge: Within 24 hours
Subjective/Interval History
-
Date of Service: July 04, 2024
Objective Data
-
Labs:
Laboratory Results
07/04/24
06:53
Sodium 136
Potassium 4.2
Chloride 97 L
Carbon Dioxide 30
BUN 26 H
Creatinine 1.1 H
Glucose 112 H
Calcium 9.2
Total Bilirubin 0.6
AST 25
ALT 16
Alkaline Phosphatase 50
Vital Signs:
Vital Signs
Temp Pulse Resp BP Pulse Ox
97.7 F 65 18 147/80 96
07/04/24 15:10 07/04/24 15:10 07/04/24 15:10 07/04/24 15:10 07/04/24 15:10
I&O
07/03/24 07/04/24 07/05/24
06:59 06:59 06:59
Intake Total 720 / 720 1680 / 1680 900 / 900
Balance 720 / 720 1680 / 1680 900 / 900
[2024-07-04 23:00] VITALS: BP 134/72
[2024-07-05] MEDS: SYNTHROID 112 MCG PO (05:27)
[2024-07-05 06:57] LABS: % Basophils 1.1 % (0-2); % Eosinophils 3.2 % (0-6); % Immature Granulocytes 1.2 % (0-0.5); % Lymphocytes 21.1 % (20.5-51.1); % Monocytes 9.4 % (1.7-9.3); Absolute Basophils 0.1 10^3/uL (0-0.2); Absolute Eosinophils 0.3 10^3/uL (0-0.7); Absolute Immature Granulocytes 0.1 10^3/uL (0-0.05); Absolute Lymphocytes 2.1 10^3/uL (1.2-3.4); Absolute Monocytes 0.9 10^3/uL (0.1-0.6); Absolute Neutrophils 6.2 10^3/uL (1.4-6.5); Hematocrit 40.2 % (37.0-47.0); Hemoglobin 13.8 g/dL (12.0-16.0); Mean Corp Hgb Conc. 34.3 g/dL (33.0-37.0); Mean Corpuscular Hgb 29.8 pg (27.0-31.0); Mean Corpuscular Volume 86.8 fL (81.0-99.0); Mean Platelet Volume 10.6 fL (7.4-10.4); Nucleated Red Blood Cells % 0 %; Platelet Count 264 10^3/uL (130-400); Red Blood Cell Count 4.63 10^6/uL (4.20-5.40); Red Cell Dist. Width 13.2 % (11.5-14.5); White Blood Cell Count 9.7 10^3/uL (4.8-10.8)
[2024-07-05 07:19] VITALS: BP 151/76
[2024-07-05] MEDS: ZEBETA 10 MG PO (07:22)
[2024-07-05] MEDS: ORETIC 6.25 MG PO (07:22)
[2024-07-05] MEDS: PLAVIX 75 MG PO (07:22)
[2024-07-05] MEDS: LOW STRENGTH ASPIRIN 81 MG PO (07:22)
[2024-07-05 07:23] LABS: Blood Urea Nitrogen 24 mg/dl (7-17); Calcium 9.6 mg/dl (8.4-10.2); Carbon Dioxide 32 mmol/L (22-30); Chloride 95 mmol/L (98-107); Estimated Creatinine Clearance 33 ml/min; Glucose 115 mg/dl (70-99); Potassium 3.9 mmol/L (3.5-5.1); Sodium 134 mmol/L (135-145); eGFR 43.27
--- NOTE | 2024-07-05 09:57 | W.PN.HOSP.TC ---
Addendum entered and electronically signed by Johnathon Cedillo MD 07/05/24 15:58:
Seen and examined by me independently in collaboration with the medical receptionist assistant.
Lab data and imaging data reviewed.
Addendum as below :
Patient states her right side vision is getting better she is not seeing the wavy lines in the right visual field. No new symptoms.
Medically stable for discharge.
Patient has been waiting for acute rehab placements but there are no beds. Patient and the son would like to to be discharged home and provide services at home. Discussed with case management was going to set up home care.
Continue with DAPT and statins. Switch from hydrochlorothiazide to amlodipine for blood pressure management. Continue with bisoprolol.
Advised patient to follow-up with the PCP and as well as neurology as outpatient.
Also advised patient to have a formal visual testing including visual field testing by muffle worker after DC.
Total time of discharge 35 minutes
Original Note:
Today's Communication/Plan
-
Awaiting acute rehab placement
Assessment / Plan
Assessment / Plan
89-year-old female with past medical history of hypothyroidism, essential hypertension, migraine, breast cancer presented to the ER reporting headache, speech issues and vision changes. She is not able to see on the right side of her visual field.
This has been ongoing for a month but has worsened in the past week. Patient's son reported that he noticed some speech defect. Also patient had bowel incontinence 2 days ago and son reported that she passed dark stools. There was a history of
TIA 7 years ago, but she was not started on any medications. Only medication she takes at home is bisoprolol/hydrochlorothiazide.
Impression/plan
Awaiting acute rehab consult.
Visual defect/aphasia
Right homonymous hemianopia, expressive aphasia
CT head�no evidence of acute intracranial abnormality
CT angiogram head/neck� There is no evidence for significant narrowing of the carotid bulbs or proximal internal carotid arteries bilaterally.Dominant right vertebral artery with small caliber left vertebral artery.
MRI brain�acute to subacute infarct of the medial left occipital lobe and the left TITLE I PARAPROFESSIONAL distribution.
Started on aspirin 81 mg, clopidogrel 75 mg X21 days
OP Holter monitoring and cardiology follow up as per neurology
Echo- No regional wall motion abnormalities are seen. LV ejection fraction is 60-65% . Normal diastolic function.
Normal right ventricular size and function.
No significant valvular pathology. No thrombus/intracardiac mass.
Neurology following
Family history of CVAs�recommend hypercoagulable workup as outpatient
B12�609, urine toxicology negative
EEG - intermittent left occipital slowing indicative of focal cerebral dysfunction. There is no evidence of focal slowing or epileptiform activity.
Approved for acute rehab
Awaiting acute rehab placement
No new complaints.
Delirium
Likely a component of dementia
No elevated white count, patient is afebrile
Monitor
Patient was placed in 4 point restraints, now off of restraints., Haldol ordered but never given.
Patient seems to be back to her baseline.
Oriented to place, person, time.
Leukocytosis
Now resolved
Unclear etiology
No source of infection
Continue to monitor
Elevated BUN and creatinine
Creatinine trended down to 1.1
Likely from dehydration
Will monitor BMP
Hypothyroidism
TFT�elevated TSH at 7.75
Patient was prescribed 112 mcg levothyroxine, but she stopped taking it.
Resume
History of melena
Hemoglobin stable
Monitor
Hypertension
Continue bisoprolol/hydrochlorothiazide
DM II
Accucheck AC & HS
SSI
A1C 5.9
Constipation
MiraLAX
DVT prophylaxis SCDs
Full code
Anticipated Discharge: Within 24 hours
Subjective/Interval History
-
Date of Service: July 05, 2024
Objective Data
-
Labs:
Laboratory Results
07/05/24
06:32
WBC 9.7
Hgb 13.8
Hct 40.2
Plt Count 264
Sodium 134 L
Potassium 3.9
Chloride 95 L
Carbon Dioxide 32 H
BUN 24 H
Creatinine 1.2 H
Glucose 115 H
Calcium 9.6
Vital Signs:
Vital Signs
Temp Pulse Resp BP Pulse Ox
97.9 F 60 16 151/76 97
07/05/24 07:19 07/05/24 07:19 07/05/24 07:19 07/05/24 07:19 07/05/24 07:19
I&O
07/04/24 07/05/24 07/06/24
06:59 06:59 06:59
Intake Total 1680 / 1680 1380 / 1380
Balance 1680 / 1680 1380 / 1380
Review of Systems
-
History Source: Patient
Constitutional: Reports No Symptoms
EENT: Reports Decreased Vision
Respiratory: Reports No Symptoms
Cardiac: Reports No Symptoms
Abdomen/GI: Reports No Symptoms
Breast: Reports No Symptoms
Genitourinary: Reports No Symptoms
Musculoskeletal: Reports No Symptoms
Skin: Reports No Symptoms
Neuro: Reports No Symptoms
Endocrine: Reports No Symptoms
Hematologic / Lymphatic: Reports No Symptoms
Allergy / Immunology: Reports No Symptoms
Physical Exam
-
General: Well Developed, Well Nourished, No Apparent Distress and Comfortable
HEENT: Normocephalic
Respiratory: Clear to Auscultation
Cardiac: Regular Rhythm and S1/S2
GI: Soft, Nontender, Nondistended and Normal Bowel Sounds
Genito-urinary: No Costovertebral Tender
Musculoskeletal: No Clubbing, No Cyanosis and No Edema
Skin: Warm
Neuro: Awake, Alert and Oriented
Hematologic / Lymphatic: No Lymphadenopathy
Psych: Calm
--- NOTE | 2024-07-05 10:50 | PTOTSP ---
ST Acute Care Evaluation/Follow-Up
Pt currently presents with clinical signs of mild receptive language impairments (i.e., mild impairments in reading and sentence comprehension on the QAB) and moderate cognitive linguistic impairments (i.e., 18/30 on MOCA). Pt currently presents
with a functional oropharyngeal swallow.
Recommendations:
- Continue with skilled FOOD SERVICE STEWARD services while admitted to hospital for ongoing language and cognitive linguistic tx. No skilled dysphagia services warranted at this time.
- Pt would continue to benefit from FOOD SERVICE STEWARD tx upon d/c at next level of care (i.e., acute rehab).
[2024-07-05 12:59] VITALS: BP 143/70; PULSE 65; O2SAT 94
[2024-07-05 14:57] VITALS: BP 139/70
--- NOTE | 2024-07-05 15:27 | CM ---
Placed a call to Mayda in admissions at [facility]. She stated that she received referral however they will not have any bed availability until Thursday at the earliest. Spoke with Leslie admissions at [facility] who also stated that she will
not have a bed until Thursday at the earliest. Met with patient and her son who was at bedside. Patient stated that she wanted to go home with [facility] VN. Patient and son were made aware that this would be against medical advisement. Patient's son
stated that he will be home with patient and confirmed that he can handle the scope of her care. In addition, patient's daughter is home the majority of the week and can also help to support patient.
Patient's son stated that he would like for patient to have VN through [facility]. Will send referral.
Resident updated. Asked for VN referral.
Plan: Case management will continue to follow and assist with discharge planning. Home with [facility] VN.
[2024-07-05] MEDS: FLUAD (65 yr+) 2024-2025 FORMULA 0.5 ML IM (16:02)
--- NOTE | 2024-07-05 16:29 | W.DCSUMMARY ---
Discharge Summary
Discharge Data
Date of Admission: 06/29/24
Date of Discharge: 07/05/24
-
Pending Results: No
Hospital Course
Discharging Physician : Dr. Johnathon Cedillo, Dr. Akila Ko
Disposition : PT OT recommended acute rehab. Acute rehab beds not available today. Patient wanted to go home today. Son takes care of patient at home, is aware that this is AGAINST MEDICAL ADVICE. Plan for discharge to home with VN.
Principal Discharge diagnosis :
Acute left WIRELESS TEAM MEMBER stroke
Hypothyroidism
Essential hypertension
Chronic Discharge diagnosis :
H/o breast cancer
Gastroesophageal reflux disease
Hospital Course :
89 y/o female with pmh of hypertension and hypothyroidism presented to the ER reporting defective vision in the right visual field of both eyes (right homonymous hemianopia). She had similar symptoms with previous migraines. She had been prescribed
medications for blood pressure and thyroid, as well as vitamins, but there were concerns about medication adherence. Denied any recent head injury or fall. Neurology was consulted. CT head wo contrast-no acute abnormalities. ua tox-neg, A1c 5.9. CRP
69.80, LDL 115, vit B12 609. She was given IV thiamine - 3 doses. Patient also had expressive aphasia. MRI showed evidence of acute to subacute infarct of the medial left occipital lobe in the left WIRELESS TEAM MEMBER distribution. She was started on Aspirin and
Plavix, her BP medications continued. She was also restarted on Levothyroxine. Echo showed LV ejection fraction 60-65%, otherwise normal. CT head and neck angio showed no evidence for significant narrowing of the carotid bulbs or proximal internal
carotid arteries bilaterally. Mild to moderate luminal irregularity of the proximal to mid posterior cerebral arteries bilaterally. PT/ OT consulted recommended acute rehab. During her hospital stay, anita burns was called. Patient was agitated and
confused for a brief period of time, put on four point restraints, likely a component of dementia. Haloperidol was ordered but never had to be given. Patient was back to her baseline mental status.
Today, patient is medically stable for discharge to acute rehab. Patient's vital signs are stable, and her condition has clinically improved. Per case management assistant, no acute rehab beds available today. Patient wants to go home today. Son takes care of
patient at home, is aware that this is AGAINST MEDICAL ADVICE. Plan for discharge to home with VN. Patient needs to take Plavix for an additional 14 days after discharge (21 days total) and aspirin lifelong. Patient was advised to continue taking
blood pressure medication, statin and levothyroxine. Patient was also advised to follow-up outpatient with ophthalmology given she had an acute stroke and cardiology for possible Holter monitoring.
Important imaging findings :
MRI head- 06/29/24- Acute to subacute infarct of the medial left occipital lobe in the left WIRELESS TEAM MEMBER distribution.
CT head- 06/28/24 - no evidence of acute intra cranial abnormalities.
Head/ neck CTA- 06/28/23- There is no evidence for significant narrowing of the carotid bulbs or proximal internal carotid arteries bilaterally.
Motion artifact limits evaluation of the cervical internal carotid arteries bilaterally. Irregular luminal appearance of the left cervical ICA which is felt to likely be due to motion rather than fibromuscular dysplasia. As warranted, consideration
could be given to a repeat CT angiography of the neck with attention to the cervical internal carotid arteries.
No evidence for large vessel occlusion or high-grade stenosis of the anterior cerebral or middle cerebral arteries.
Dominant right vertebral artery with small caliber left vertebral artery. Mild to moderate luminal irregularity of the proximal to mid posterior cerebral arteries bilaterally. Somewhat limited visualization of the distal branches of the posterior
cerebral artery. Not mentioned above, superior cerebellar arteries are visualized bilaterally.
Discharge Plan
-
Patient Disposition: Home with Home Care
Discharge Diagnosis/Procedures: Acute left WIRELESS TEAM MEMBER stroke, hypothyroidism, hypertension, h/o breast cancer, gastroesophageal reflux disease
Condition: Fair
Diet: Low Cholesterol
Activity: As tolerated
Driving Restrictions: Not until seen by your Dr
Bathing Restrictions: OK to Shower
Other Services: VN, PT and OT
Referrals:
Sergio Davis MD [Active] - in one to two weeks (For formal vision testing including visual tapia)
Michele Fournier MD [Active] -
Makayla Huggins MD [Active] - in one month
Alex Patel MD [Family Provider] - in less than 1 week
Additional Discharge Medication Instructions: You will need to take plavix for an additional 14 days.
You will need to take aspirin lifelong.
Please follow/up with outpatient cardiology for holter monitoring.
Given you strong family history of stroke, you and your family can consider hypercoagulable workup as outpatient.
Prescriptions:
New
atorvastatin 40 mg Tablet
40 mg PO QPM Qty: 30 0RF
aspirin 81 mg Tablet,Chewable
81 mg PO DAILY Qty: 30 3RF
clopidogrel 75 mg Tablet
75 mg PO DAILY Qty: 14 0RF
amlodipine 5 mg Tablet
5 mg PO DAILY Qty: 30 0RF
levothyroxine 112 mcg Tablet
112 mcg PO DAILY @ 0600 Qty: 30 0RF
Continued
bisoprolol-hydrochlorothiazide 10-6.25 mg Tablet
1 tab PO DAILY
Discharge Orders:
Discharge Patient (As Directed); Ordered 07/05/24
Ordered By: Johnathon Cedillo
Discharge Date and Time
Discharge Date/Time: 07/05/24 16:52
Print Language: OCCITAN
--- NOTE | 2024-07-05 16:50 | W.PN.UPDATE ---
Update Note
Progress Note Update
PT OT recommended acute rehab. Per CM, acute rehab beds not available today. Patient wants to go home today. Son takes care of patient at home, is aware that this is AGAINST MEDICAL ADVICE. Plan for discharge to home with VN.
== END 2024-07-05 16:52 | disposition home health service (06) | DRG 65 ==
LOC: 3 WEST ACU 13:50
PROVIDERS: Nurse Practitioner Family; Physician Assistant Medical; Registered Nurse; Student in an Organized Health Care Education/Training Program; ADMITTING PHYSICIAN Hospitalist; ATTENDING PHYSICIAN Internal Medicine; CONSULT PHYSICIAN Physical Medicine & Rehabilitation; CONSULT PHYSICIAN Psychiatry & Neurology Neurology; EMERGENCY PHYSICIAN Emergency Medicine; FAMILY PHYSICIAN Family Medicine
DX: I63.532 Cerebral infarction due to unspecified occlusion or stenosis of left posterior cerebral artery (principal); F03.92 Unspecified dementia, unspecified severity, with psychotic disturbance; F05 Delirium due to known physiological condition; R29.702 NIHSS score 2; H53.462 Homonymous bilateral field defects, left side; H53.461 Homonymous bilateral field defects, right side; I10 Essential (primary) hypertension; K21.9 Gastro-esophageal reflux disease without esophagitis; E03.9 Hypothyroidism, unspecified; E11.9 Type 2 diabetes mellitus without complications; R47.01 Aphasia; Z78.1 Physical restraint status; E78.00 Pure hypercholesterolemia, unspecified; E55.9 Vitamin D deficiency, unspecified; D64.9 Anemia, unspecified; Z88.5 Allergy status to narcotic agent; Z96.653 Presence of artificial knee joint, bilateral; Z91.148 Patient's other noncompliance with medication regimen for other reason; Z90.10 Acquired absence of unspecified breast and nipple
CPT/HCPCS: 70450; 70496; 70498; 70551; 80048; 80053; 80061; 80306; 81003; 81015; 82607; 82962; 83036; 83605; 84439; 84443; 84484; 85025; 85027; 85610; 85652; 85730; 86140; 86850; 86900; 86901; 87040; 87502; 87811; 90662; 92523; 92526; 92610; 93005; 93306; 95816; 96374; 97112; 97116; 97163; 97167; 97530; 97535; 99285; G0008; Q9967

== ENCOUNTER 2024-07-13 14:35 | Emergency (ER) | payer MEDICARE, OTHER, SELFPAY ==
[2024-07-13] VITALS (13 sets, daily range): BP systolic 149–191; BP diastolic 70–99
--- NOTE | 2024-07-13 17:51 | ED.GENMED ---
History of Present Illness
General
Chief Complaint: Blood Pressure Problem
Source: patient
Exam Limitations: none
Time Seen by Provider: 07/13/24 17:00
Nursing documentation reviewed up to this point in time: agreed with
History of Present Illness
History of Present Illness:
89 y/o F with h/o HTN, HLD, migraines
here for elevated BP reading at home today
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
she has a visual field cut seven the R superiro eye laterally
she was started on amlipine, statin and asa and plavix while hospitalized
her bps were 150s-170s/80s
she was dario to go to rehab but there was no rehabs in this area available so she opted to go home with home care
pt has had home OT which said she iddn't need themm
and home RN
and then today home PT
pt says she was told her BP was elevated for the PT 200/120
she had taken her meds
initially she said no sypmtoms at all but then said her R eye had some haziness to it. her son said she has been complainign of this off and on for 6 mo and that this is not new
pt is'nt srue exactly.
But it did resolve. She never had a headache with it. Patient says that the PT tried to call the primary care doctor but could not reach anybody so they called 911. Patient remains asymptomatic here, saying that her blurred vision or what ever
she had in her right visual field is resolved. She has been without headache, chest pain, shortness of breath, vomiting. Patient had normal for baseline creatinine when she was here 1.2.
Past History
Past History
ED Past Medical History: GERD, HTN, Hypercholesterolemia and Other (migraine)
ED Past Surgical History: Gynecological and Orthopedic
Social History
Tobacco: Non-smoker
Alcohol: Other
Drug: None
Personal:
Living: with family
Employment: Retired
Family History
Family History: Other
Review of Systems
Review of Systems
Allergies reviewed?: Yes
All Other Systems: Not applicable
Phy Exam
Physical Exam
Physical Exam:
GENERAL: Alert , in no apparent distress
HEAD: NCAT
EYE: pupils equal and reactive, no nystagmus, minimal photophobia
NECK: Supple,full rom, nontender
ENT: o/p clr, mmm.
CARDIAC: Regular rate and rhythm . no edema
LUNGS: Clear breath sounds bilaterally, no acute respiratory distress, no wheezes/rales/rhonchi
ABDOMEN: Soft, without focal tenderness, no r/g, no cvat
NEUROLOGICAL: Alert and orientedx 4, cn intact right visual field cut in the right lateral superior vision, no facial asymmetry, 5/5 strength in UE/LE, sensation intact, romberg neg, ambulates without assistance, neg pronator drift
SKIN: Warm and dry, skin intact.
MUSCULOSKELETAL: No edema, well perfused.
PSYCH: Normal and appropriate interaction.
Course
Orders/Labs/Results
Orders:
Orders
07/13/24 17:51
CT Head W/o Iv Contrast Urgent
Comment:
Reason For Exam: high bp, R eye blurriness; recent GANG VIBRATOR OPERATOR infarct
07/13/24 19:55
Amlodipine [Norvasc] 5 mg PO NOW STA
Vital Signs
Initial and Last Documented VS:
Initial Vital Signs
Temp Pulse Resp BP Pulse Ox
36.6 C 91 16 149/94 97
07/13/24 14:43 07/13/24 14:43 07/13/24 14:43 07/13/24 14:43 07/13/24 14:43
Last Documented Vital Signs
Temp Pulse Resp BP Pulse Ox
36.6 C 88 17 163/75 97
07/13/24 14:43 07/13/24 21:26 07/13/24 21:26 07/13/24 21:26 07/13/24 18:03
MDM/Problems Addressed
Differential Diagnosis Includes:
Hypertension, stroke, migraine
MDM/Problems Addressed:
89-year-old female with a recent right GANG VIBRATOR OPERATOR stroke seen on MRI after visual field cut was noticed presents for hypertension noticed by the PT at home today. Patient had been having blood pressures in the 150s when she was hospitalized. She went
home on amlodipine and bisoprolol with/HCTZ. She has been compliant. This morning she noticed a little bit of haziness in her right vision but it resolved. Patient has had this symptom before for several months. She had no headache. The
patient's blood pressure was elevated for the physical therapist 200/100. Here her initial blood pressure was 140s over 90s. She was well-appearing and had an stable neurologic exam with just a visual field cut. I initially spoke with "Peggy"Jeffy who is ED attending regarding this patient as it seemed that we did not need to perform any new workup since she had just been hospitalized. They did believe the stroke could be embolic. She has a follow-up with cardiology. Otherwise her
testing here was unremarkable. He agreed. But given the transient vision changes earlier I did do a new plain head CT to ensure no other changes. Patient became mildly more hypertensive while she was waiting. She was hungry and wanted to go
home. Her blood pressures went up as high as 190s over 90s. At that point I did talk to Dr. Bardales about the next best step which he had recommended giving an extra dose of amlodipine. I fed her and watch her for some time and her blood
pressure came down to 160/70. She does have home care and does have follow-up appointments coming up. I feel that patient is optimized on stroke prevention at this time.
*Critical Care Note
Total Time (30-74mins, 75-104mins- exclusive of procedures): Not Applicable
ED Attending Note
-
Portions of this chart may have been created with voice recognition software.� Occasional wrong word or��sound alike� substitutions may have occurred due to the inherent limitations of voice recognition software.
Discharge Plan
Departure
Patient Disposition: Home (Routine Discharge)
Date of Disposition: 07/13/24
Time of Disposition: 21:36
Patient with high blood pressure during this ER visit?: Yes
Condition: Fair
Discharge Problem:
High blood pressure
Instructions: High Blood Pressure (DC)
Prescriptions:
No Action
bisoprolol-hydrochlorothiazide 10-6.25 mg Tablet
1 tab PO DAILY
atorvastatin 40 mg Tablet
40 mg PO QPM Qty: 30 0RF
aspirin 81 mg Tablet,Chewable
81 mg PO DAILY Qty: 30 3RF
clopidogrel 75 mg Tablet
75 mg PO DAILY Qty: 14 0RF
amlodipine 5 mg Tablet
5 mg PO DAILY Qty: 30 0RF
levothyroxine 112 mcg Tablet
112 mcg PO DAILY @ 0600 Qty: 30 0RF
Referrals:
Alex Patel MD [Family Provider] - Follow up in 2-3 days
Activity Restrictions/Additional Instructions:
YOUR BLOOD PRESSURE WAS ELEVATED TODAY
YOU WERE GIVEN AN EXTRA DOSE OF AMLOPIDINE
HAVE THIS BLOOD PRESSURE RECHECKED
YOU MAY NEED TO TAKE ANOTHER MEDICATINO OR INCREASE YOUR AMLODIPINE DOSE. 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
YOUR CAT SCAN SHOWED THE AREA OF STROKE BUT NO NEW FINDINGS
RETURN FOR ANY CONCERNS
SEVERE HEADACHE, CHEST PAIN, SHORTNESS OF BREATH, PASSING OUT, VISION CHANGES ETC.
Interventions
Interventions:
*Risk Screen - Suicide Last Done: 07/13/24 14:43
*General Assessment Last Done: 07/13/24 14:43
*Neglect/Abuse Screening Last Done: 07/13/24 18:04
ED- Fall Risk Assessment Last Done: 07/13/24 22:07
*ED COVID-19 Vaccine History Last Done: 07/13/24 17:24
*Nursing Disposition Last Done: 07/13/24 22:07
ED- Cardiac Assessment Last Done: 07/13/24 18:03
ED- Neurological Assessment Last Done: 07/13/24 18:03
ED- Pulmonary Assessment Last Done: 07/13/24 18:03
Discharge Date and Time
Discharge Date/Time: 07/13/24 22:07
Print Language: ALBANIAN
[2024-07-13] MEDS: NORVASC 5 MG PO (20:00)
== END 2024-07-13 22:07 | disposition home or self-care (01) ==
LOC: EMR 14:35
PROVIDERS: EMERGENCY PHYSICIAN Emergency Medicine; FAMILY PHYSICIAN Family Medicine
DX: I10 Essential (primary) hypertension (principal); E78.00 Pure hypercholesterolemia, unspecified; K21.9 Gastro-esophageal reflux disease without esophagitis; Z86.73 Personal history of transient ischemic attack (TIA), and cerebral infarction without residual deficits; Z79.82 Long term (current) use of aspirin; Z79.899 Other long term (current) drug therapy
CPT/HCPCS: 99284; 70450